=== PATIENT | male | born 1960 | race Caucasian/White ===

== ENCOUNTER 2018-04-05 19:06 | Inpatient (IN) | payer MEDICAID ==
[~2018-04-05] VITALS: Ht 188 cm; Wt 79.4 kg
--- NOTE | 2018-04-05 19:08 | NUR ---
PT BIBRA FROM HOME TO ER BED 12. C/O BILAT FOOT PAIN. HX OF GOUT. PER REPORT, PT HAD A SYNCOPAL EPISODE ON THE WAY TO [facility]. UNABLE TO RECALL WHAT HAPPEN. NO OVIOUS TRAUMA NOTED. AWAITING MD AGUILAR.
--- NOTE | 2018-04-05 19:12 | NUR ---
DR ARTEAGA AT BEDSIDE FOR EVAL.
--- NOTE | 2018-04-05 19:20 | NUR ---
TAILINGS DAM LABORER AT BEDSIDE FOR BLOOD DRAW.
--- NOTE | 2018-04-05 19:30 | NUR ---
RADIOLOGY AT BEDSIDE FOR L ANKLE XRAY.
[2018-04-05 19:49] LABS: CALCIUM, SERUM 9.4 mg/dL (8.5-10.1); CARBON DIOXIDE 22 mmol/L (21-32); CHLORIDE 102 mmol/L (98-107); CREATININE 1.9 mg/dL (0.6-1.3); GLUCOSE 135 mg/dL (74-106); SODIUM SERUM 137 mmol/L (136-145); UREA NITROGEN, BLOOD 26 mg/dL (7-18)
[2018-04-05 19:51] LABS: INR 1.11 (0.85-1.15)
[2018-04-05 19:55] LABS: TROPONIN I < 0.017 ng/mL (0.00-0.056)
[2018-04-05 20:07] LABS: POTASSIUM 2.8 mmol/L (3.5-5.1)
[2018-04-05] MEDS ORDERED: POTASSIUM CHLORIDE 10 MEQ/50 ML PREMIXED IVPB FOR PERIPHERAL LINE IV ONE (22:00)
--- NOTE | 2018-04-05 22:00 | NUR ---
CALLED [employer] NETWORKING ADMINISTRATOR WAS PAGED.
[2018-04-05] MEDS ORDERED: POTASSIUM CL. PREMIX PERIPHER. 200 ML ONE (22:03)
[2018-04-05 22:25] VITALS: BP 140/71
--- NOTE | 2018-04-05 22:25 | NUR ---
PT ADMITTED TO TELE WITH DIAGNOSES OF HYPOKALEMIA . PT VERBALLY RESPONSIVE, A/O X4 .PT WITH NO DISTRESS AND STABLE VS. IV ASSESS ON LAC G 18. 1 POTASSIUM IV BAG WAS GIVEN IN ER. 3 MORE BAGS WILL BE GIVEN ON FLOOR. WILL CONTINUE TO MONITOR
--- NOTE | 2018-04-05 22:27 | NUR ---
REPORT GIVEN TO KEN SANTOS. PT AWAITING TRANSFER TO FLOOR.
--- NOTE | 2018-04-05 22:30 | NUR ---
PT TO RADIOLOGY FOR HEAD CT SCAN VIA [facility].
[2018-04-05 22:50] VITALS: BP 140/71
--- NOTE | 2018-04-05 23:03 | NUR ---
TRANSFERED TO FLOOR IN STABLE CONDITION.
[2018-04-06] MEDS: METOPROLOL TARTRATE 25 MG TABLET PO SCH ×3 (00:30→20:54)
[2018-04-06] MEDS ORDERED: HYDROCODONE/APAP 5/325MG 1 EACH TABLET PO PRN (00:30)
[2018-04-06] MEDS ORDERED: ACETAMINOPHEN 325 MG TABLET PO PRN (00:30)
[2018-04-06] MEDS ORDERED: TEMAZEPAM 7.5 MG CAPSULE PO PRN (00:30)
[2018-04-06] MEDS ORDERED: ONDANSETRON HCL/PF 4 MG/2 ML VIAL IVP PRN (00:30)
[2018-04-06 01:18] LABS: HEMATOCRIT 36 % (39-51); HEMOGLOBIN 12.1 g/dL (13.5-17.5); MEAN CORPUSCULAR HEMOGLOBIN 28 PG (26.0-33.0); MEAN CORPUSCULAR VOLUME 83 fL (80-96); RED BLOOD CELL COUNT(AUTO) 4.32 MIL/uL (4.5-6.0); WHITE BLOOD COUNT (AUTO) 17.4 K/uL (4.3-11.0)
[2018-04-06 01:19] LABS: BASOPHILS # (AUTO) 0.1 /CMM (0.0-0.2); BASOPHILS % (AUTO) 0.5 % (0.0-2.0); EOSINOPHILS % (AUTO) 0.1 % (0.0-6.0); LYMPHOCYTES # (AUTO) 0.8 /CMM (0.8-4.8); LYMPHOCYTES % (AUTO) 4.5 % (20.0-44.0); MEAN CORPUSCULAR HGB CONC 34 g/dl (31.0-36.0); MONOCYTES # (AUTO) 1.4 /CMM (0.1-1.30); MONOCYTES % (AUTO) 7.8 % (2.0-12.0); NEUTROPHILS # (AUTO) 15.2 /CMM (1.8-8.9); NEUTROPHILS % (AUTO) 87.1 % (43.0-81.0); PLATELET COUNT (AUTO) 262 /CMM (150-450); RDW COEFFICIENT OF VARIATION 14.4 (11.5-15.0)
[2018-04-06] MEDS ORDERED: VANCOMYCIN 1 GM in IV D5W 250 ML IV ONE (02:00)
[2018-04-06] MEDS ORDERED: VANCOMYCIN 1 GM VIAL ONE (02:13)
--- NOTE | 2018-04-06 04:40 | NUR ---
CALLED TO LYUBOV BONNER TO INFORM HIM THAT PT'S MAGNESIUM IS LOW 1.7. MED ORDER WAS GIVEN BY MD MCARTHUR , MAGNESIUM OXIDE 400 PO ONCE
[2018-04-06 05:00] VITALS: BP 156/82
[2018-04-06] MEDS ORDERED: MAGNESIUM OXIDE 400 MG TABLET PO ONE (05:00)
[2018-04-06] MEDS ORDERED: PIPERACILLIN /TAZOBACTAM 2.25 G VIAL IV ONE (05:23)
[2018-04-06] MEDS ORDERED: PIPERACILLIN /TAZOBACTAM 2.25 G in IV D5W 50 ML IV SCH (06:00)
--- NOTE | 2018-04-06 07:00 | NUR ---
NURSE INTERN CLOSING NOTES PT IN BED , A/O X4 , VS ARE STABLE , NO S/S RESPIRATORY DISTRESS , NO COMPLAIN OF PAIN AT THIS TIME. IV SIDE ON LAC G 18 INTACT AND PATENT. PT NEEDS ATTENDED. BED IN LOW AND LOCKED POSITION , WITH SIDE RAILS UP X2. CALL LIGHT WITHIN REACH. WILL ENDORSE TO DAY SHIFT FOR ROSAURA.
[2018-04-06 08:00] VITALS: BP 159/79
[2018-04-06] MEDS: predniSONE 20 MG TABLET PO SCH (08:16)
[2018-04-06] MEDS: PANTOPRAZOLE 40 MG TABLET.DR PO SCH (08:16)
[2018-04-06] MEDS: DOCUSATE SODIUM 100 MG CAPSULE PO SCH ×2 (08:16→18:12)
[2018-04-06] MEDS: ASPIRIN EC 325 MG TABLET.DR PO SCH (08:17)
--- NOTE | 2018-04-06 08:17 | NUR ---
CLINICAL SUPPORT TECH NOTES PATIENT IN BED, AWAKE. SINUS RHYTHM HR 86, BREATHING ON ROOM AIR WITH NO SOB. BREAKFAST SERVED WITH GOOD APPETITE. BROOKE FEET SWELLING NOTED, PAIN 2/10 REPORTED. CALL LIGHT WITHIN REACH, WILL CONT TO MONITOR.
[2018-04-06 08:37] LABS: ALANINE AMINOTRANSFERASE 14 U/L (12-78); ALKALINE PHOSPHATASE 71 U/L (46-116); ASPARTATE AMINOTRANSFERASE 11 U/L (15-37); BILIRUBIN,TOTAL 1.7 mg/dL (0.2-1.0); CALCIUM, SERUM 8.5 mg/dL (8.5-10.1); CARBON DIOXIDE 22 mmol/L (21-32); CHLORIDE 104 mmol/L (98-107); CREATININE 1.7 mg/dL (0.6-1.3); GLUCOSE 135 mg/dL (74-106); MAGNESIUM 1.8 mg/dL (1.8-2.4); PHOSPHORUS 2.3 mg/dL (2.5-4.9); POTASSIUM 3.1 mmol/L (3.5-5.1); SODIUM SERUM 137 mmol/L (136-145); TOTAL PROTEIN, SERUM 6.8 g/dL (6.4-8.2); UREA NITROGEN, BLOOD 22 mg/dL (7-18)
[2018-04-06 08:41] LABS: TROPONIN I < 0.017 ng/mL (0.00-0.056)
[2018-04-06 08:45] LABS: BASOPHILS % (AUTO) 0.4 % (0.0-2.0); EOSINOPHILS % (AUTO) 0.2 % (0.0-6.0); HEMATOCRIT 31 % (39-51); HEMOGLOBIN 11.3 g/dL (13.5-17.5); MEAN CORPUSCULAR HEMOGLOBIN 29 PG (26.0-33.0); MEAN CORPUSCULAR HGB CONC 36 g/dl (31.0-36.0); MEAN CORPUSCULAR VOLUME 81 fL (80-96); MONOCYTES % (AUTO) 10.8 % (2.0-12.0); NEUTROPHILS % (AUTO) 80.6 % (43.0-81.0); PLATELET COUNT (AUTO) 217 /CMM (150-450); RDW COEFFICIENT OF VARIATION 14.6 (11.5-15.0); WHITE BLOOD COUNT (AUTO) 10.8 K/uL (4.3-11.0)
[2018-04-06 08:48] LABS: CHOLESTEROL 123 mg/dL (<200); HDL CHOLESTEROL 40 mg/dL (40-60); LDL 78 mg/dL (0-99); THYROID STIMULATING HORMONE 0.281 uIU/mL (0.358-3.74); TRIGLYCERIDES 55 mg/dL (30-150)
[2018-04-06] MEDS ORDERED: ALLOPURINOL 100 MG TABLET PO SCH (09:00)
[2018-04-06] MEDS ORDERED: AMLO10TA2 PO (09:09)
[2018-04-06] MEDS ORDERED: LISI2.5T2 PO (09:09)
[2018-04-06] MEDS ORDERED: HYDR-4076 PO (09:09)
[2018-04-06] MEDS ORDERED: FEE PK DOSING 1 MIN EA MC ONE (09:19)
[2018-04-06] MEDS ORDERED: POTASSIUM CHLORIDE 20 MEQ POWDER PACKET PO SCH (10:00)
[2018-04-06] MEDS: NEUTRA PHOS 1 POWD.PACKET PO SCH ×2 (11:01→18:12)
[2018-04-06] MEDS: POTASSIUM CHLORIDE 20 MEQ TAB.PRT.SR PO SCH ×2 (11:02→12:35)
[2018-04-06] MEDS: PIPERACILLIN /TAZOBACTAM 3.375 G in IV D5W 50 ML IV SCH ×2 (12:34→17:46)
[2018-04-06] MEDS: VANCOMYCIN 0.75 GM in IV D5W 250 ML IV SCH (13:34)
[2018-04-06 16:00] VITALS: BP 158/86
[2018-04-06] MEDS: IV NS 0.9% 1,000 ML IV PRN (18:15)
--- NOTE | 2018-04-06 18:51 | NUR ---
MS RN CLOSING NOTES PATIENT SITTING UP IN BED, A/O X4. LEFT FOOT PAIN IS MANAGEABLE BY POSITIONING/NON MEDICATION MEASURE. PATIENT IS SEEN BY DR. VILLEDA TODAY FOR CONSULT/CARDIO, POTASSIUM AND PHOSPHORUS SUPPLEMENTED ORDERED, IVF NS INFUSING AT 125ML/HR, VOIDED WITHOUT DIFFICULTY, URINE SPECIMEN SEND TO LAB FOR UA TEST. CONTINUE ANTIBIOTIC PER MD, AFEBRILE DURING THE SHIFT. CALL LIGHT WITHIN REACH. WILL ENDORSE TO ONCOMING RN.
--- NOTE | 2018-04-06 19:40 | NUR ---
RN MS OPENING NOTES RECEIVED PATIENT IN BED, AWAKE ALERT AND ORIENTED X 4, RESPIRATIONS EVEN AND UNLABORED WITH EQUAL RISE AND FALL OF CHEST, PER PATIENT HAS DISCOMFORT TO LEFT FOOT BUT MANAGEABLE AT THIS TIME WITH SELF REPOSITIONING, IV SITE TO LEFT AC INTACT AND PATENT, NO REDNESS NO INFILTRATION PRESENT, IVF RUNNING ORDERED. ORIENTED TO STAFF AND CALL LIGHT, CALL LIGHT KEPT WITHIN REACH, URINAL AT BEDSIDE, ALL NEEDS ATTENDED AT THIS TIME, SAFETY PRECAUTIONS RENDERED, REMAINS COMFORTABLE, WILL CONTINUE TO MONITOR.
[2018-04-06 20:00] VITALS: BP 140/71
[2018-04-06 23:15] LABS: APPEARANCE,URINE TURBID (CLEAR); BILIRUBIN,URINE NEGATIVE (NEGATIVE); BLOOD, URINE NEGATIVE Ery/uL (NEGATIVE); COLOR,URINE YELLOW (YELLOW); KETONES,URINE NEGATIVE (NEGATIVE); LEUKOCYTE ESTERASE ,URINE NEGATIVE (NEGATIVE); NITRITE, URINE NEGATIVE (NEGATIVE); PROTEIN,URINE 1+ mg/dl (NEGATIVE); UGLUCOSE NEGATIVE (NEGATIVE); UROBILINOGEN,URINE 0.2 EU/dL (0.2)
[2018-04-06 23:37] LABS: BACTERIA,URINE None seen /HPF (None Seen); RBC,URINE NONE SEEN /HPF (0-2); SQUAMOUS EPITHELIAL CELL,UR Few /HPF (None Seen)
[2018-04-06 23:38] LABS: URINE AMORPHOUS URATE Moderate /HPF (None Seen)
[2018-04-07] MEDS: PIPERACILLIN /TAZOBACTAM 3.375 G in IV D5W 50 ML IV SCH ×3 (00:17→11:52)
[2018-04-07] MEDS: VANCOMYCIN 0.75 GM in IV D5W 250 ML IV SCH (01:59)
[2018-04-07] MEDS: IV NS 0.9% 1,000 ML IV PRN ×2 (04:32→19:31)
--- NOTE | 2018-04-07 07:09 | NUR ---
RN MS CLOSING NOTES PATIENT IN BED, AWAKE ALERT AND ORIENTED X 4 ABLE TO MAKE NEEDS KNOWN. DENIES ANY PAIN OR DISCOMFORT AT THIS TIME, RESPIRATIONS EQUAL AND UNLABORED, WITH EQUAL RISE AND FALL OF CHEST. IV SITE INTACT AND PATENT NO REDNESS , NO INFILTRATION PRESENT.IVF RUNNING ORDERED. SAFETY PRECAUTIONS IN PLACE, CALL ALARM ON , LOW BED, AND LOCKED, CALL LIGHT KEPT WITHIN REACH ,ALL NEEDS ATTENDED WILL CONTINUE TO MONITOR AND ENDORSE TO NEXT SHIFT.
--- NOTE | 2018-04-07 07:30 | NUR ---
PT RECEIVED RESTING COMFORTABLY IN BED WITH EYES CLOSED. NO S/S OR C/O PAIN OR DISTRESS NOTED. SIDE RAILS UP X2, CALL LIGHT LEFT WITHIN REACH. WILL CONTINUE PLAN OF CARE.
[2018-04-07 07:32] LABS: ALBUMIN 2.5 g/dL (3.4-5.0); CALCIUM, SERUM 8.2 mg/dL (8.5-10.1); CREATININE 1.6 mg/dL (0.6-1.3); MAGNESIUM 1.6 mg/dL (1.8-2.4); PHOSPHORUS 3.9 mg/dL (2.5-4.9); POTASSIUM 3.3 mmol/L (3.5-5.1); TOTAL PROTEIN, SERUM 6.2 g/dL (6.4-8.2)
[2018-04-07 07:48] LABS: HEMATOCRIT 29 % (39-51); HEMOGLOBIN 10.2 g/dL (13.5-17.5); MEAN CORPUSCULAR HEMOGLOBIN 29 PG (26.0-33.0); MEAN CORPUSCULAR HGB CONC 36 g/dl (31.0-36.0); MEAN CORPUSCULAR VOLUME 82 fL (80-96); RDW COEFFICIENT OF VARIATION 13.4 (11.5-15.0); RED BLOOD CELL COUNT(AUTO) 3.49 MIL/uL (4.5-6.0); WHITE BLOOD COUNT (AUTO) 8.4 K/uL (4.3-11.0)
[2018-04-07 07:49] LABS: BASOPHILS % (AUTO) 0.5 % (0.0-2.0); EOSINOPHILS % (AUTO) 0.7 % (0.0-6.0); MONOCYTES # (AUTO) 0.8 /CMM (0.1-1.30); MONOCYTES % (AUTO) 9.7 % (2.0-12.0); NEUTROPHILS # (AUTO) 6.5 /CMM (1.8-8.9); NEUTROPHILS % (AUTO) 77.1 % (43.0-81.0); PLATELET COUNT (AUTO) 194 /CMM (150-450)
[2018-04-07] MEDS: PANTOPRAZOLE 40 MG TABLET.DR PO SCH (08:17)
[2018-04-07] MEDS: predniSONE 20 MG TABLET PO SCH (08:17)
[2018-04-07] MEDS: DOCUSATE SODIUM 100 MG CAPSULE PO SCH ×2 (08:18→16:53)
[2018-04-07] MEDS: ASPIRIN EC 325 MG TABLET.DR PO SCH (08:18)
[2018-04-07] MEDS: METOPROLOL TARTRATE 25 MG TABLET PO SCH ×2 (08:18→21:04)
[2018-04-07 08:24] VITALS: BP 145/72
[2018-04-07] MEDS: POTASSIUM CHLORIDE 20 MEQ TAB.PRT.SR PO SCH ×3 (09:27→12:33)
[2018-04-07] MEDS: Magnesium 1GM/D5W 100ML PREMIX 100 ML IV SCH ×3 (09:27→12:33)
--- NOTE | 2018-04-07 13:05 | NUR ---
SW [facility] to family requesting a verification of admission letter. SW completed letter and gave it to the family per their request. No other social service needs are required at this time. SW is available, if needed.
[2018-04-07] MEDS: SOD FERRIC GLUC 125 MG in IV NS 0.9% 100 ML IV SCH (15:10)
[2018-04-07 16:26] VITALS: BP 158/80
--- NOTE | 2018-04-07 18:25 | NUR ---
CHANGE OF SHIFT REPORT PT RESTING COMFORTABLY IN BED. NO S/S OR C/O PAIN OR DISTRESS NOTED. SIDE RAILS UP X2, CALL LIGHT LEFT WITHIN REACH. PT KEPT CLEAN, DRY, AND COMFORTABLE. NO SIGNIFICANT CHANGES SINCE PREVIOUS SHIFT. WILL GIVE REPORT TO DORY SANTOS.
--- NOTE | 2018-04-07 19:10 | NUR ---
RN INITIAL NOTES: Received patient on bed, alert, oriented x 4. Breathing even and unlabored. No signs of distress. No complaints of discomfort as of this time. Peripheral IV infusing at 125mL/hr. Call rogers within reach. Bed in low, locked position with siderailsx2 up. Offered bedside commode but patient refused. Patient stable as endorsed by the morning shift RN.
[2018-04-07 20:00] VITALS: BP 152/82
[2018-04-07 20:02] VITALS: BP 152/82
[2018-04-08] MEDS: IV NS 0.9% 1,000 ML IV PRN ×2 (04:20→18:51)
--- NOTE | 2018-04-08 05:49 | NUR ---
MS RN CLOSING NOTES: Patient resting in bed, alert, oriented x 4. Peripheral IV of NS infusing at 125mL/hr. No complaints of pain or discomfort as of this time. Safety precautions in place. All needs attended to. All due medications given as ordered. Will endorse ROSAURA to morning shift RN.
[2018-04-08 06:38] LABS: ALBUMIN 2.6 g/dL (3.4-5.0); BILIRUBIN,TOTAL 0.6 mg/dL (0.2-1.0); CALCIUM, SERUM 8.2 mg/dL (8.5-10.1); CREATININE 1.4 mg/dL (0.6-1.3); MAGNESIUM 1.7 mg/dL (1.8-2.4); PHOSPHORUS 3.5 mg/dL (2.5-4.9); POTASSIUM 3.4 mmol/L (3.5-5.1); TOTAL PROTEIN, SERUM 6.5 g/dL (6.4-8.2)
[2018-04-08 07:07] LABS: BASOPHILS % (AUTO) 0.2 % (0.0-2.0); EOSINOPHILS % (AUTO) 0.8 % (0.0-6.0); HEMATOCRIT 33 % (39-51); HEMOGLOBIN 11.4 g/dL (13.5-17.5); LYMPHOCYTES # (AUTO) 1.2 /CMM (0.8-4.8); LYMPHOCYTES % (AUTO) 11.4 % (20.0-44.0); MEAN CORPUSCULAR HEMOGLOBIN 29 PG (26.0-33.0); MEAN CORPUSCULAR HGB CONC 35 g/dl (31.0-36.0); MEAN CORPUSCULAR VOLUME 82 fL (80-96); MONOCYTES # (AUTO) 0.6 /CMM (0.1-1.30); MONOCYTES % (AUTO) 5.6 % (2.0-12.0); NEUTROPHILS # (AUTO) 8.5 /CMM (1.8-8.9); PLATELET COUNT (AUTO) 275 /CMM (150-450); RDW COEFFICIENT OF VARIATION 13.6 (11.5-15.0); RED BLOOD CELL COUNT(AUTO) 3.94 MIL/uL (4.5-6.0); WHITE BLOOD COUNT (AUTO) 10.4 K/uL (4.3-11.0)
--- NOTE | 2018-04-08 07:30 | NUR ---
RN MS NOTES PT IN BED, ASLEEP, EASY TO AROUSE, ALERT AND ORIENTED, DENIES PAIN, BREATHING PATTERN NORMAL AND NOT LABORED, CALL LIGHT WITHIN REACH, IV FLUIDS INFUSING WELL, NEEDS ATTENDED.
[2018-04-08] MEDS: PANTOPRAZOLE 40 MG TABLET.DR PO SCH (08:11)
[2018-04-08] MEDS: predniSONE 20 MG TABLET PO SCH (08:11)
[2018-04-08] MEDS: ASPIRIN EC 325 MG TABLET.DR PO SCH (08:11)
[2018-04-08] MEDS: METOPROLOL TARTRATE 25 MG TABLET PO SCH ×2 (08:12→21:35)
[2018-04-08 08:22] VITALS: BP 191/83
[2018-04-08] MEDS: DOCUSATE SODIUM 100 MG CAPSULE PO SCH ×2 (09:00→17:00)
[2018-04-08] MEDS: POTASSIUM CHLORIDE 20 MEQ TAB.PRT.SR PO SCH ×3 (10:11→12:31)
[2018-04-08] MEDS: Magnesium 1GM/D5W 100ML PREMIX 100 ML IV SCH ×2 (10:11→11:34)
[2018-04-08 10:39] VITALS: BP 160/79
[2018-04-08 15:57] VITALS: BP 166/89
[2018-04-08] MEDS: SOD FERRIC GLUC 125 MG in IV NS 0.9% 100 ML IV SCH (17:10)
--- NOTE | 2018-04-08 17:39 | NUR ---
RN MS NOTES PT'S BP 166/89 HR 64, DR. ROBERTO INFORMED, SAID TO MONITOR IT, NO NEW MEDICATION ORDER GIVEN.
--- NOTE | 2018-04-08 18:30 | NUR ---
RN MS NOTES\ PT IN BED, AWAKE, ALERT AND ORIENTED, DENIES PAIN, NOT IN DISTRESS, PM MEDS GIVEN ORDERED, SEEN BY DR. ROBERTO TODAY, PLAN OF CARE DISCUSSED WITH PT, VERBALIZED UNDERSTANDING, ALL NEEDS ATTENDED.
--- NOTE | 2018-04-08 19:35 | NUR ---
MS RN OPENING NOTES RECEIVED PATIENT IN BED, AWAKE ALERT AND ORIENTED X 4, RESPIRATIONS EVEN AND UNLABORED WITH EQUAL RISE AND FALL OF CHEST, PER PATIENT HAS VERY MILD DISCOMFORT TO LEFT FOOT BUT MANAGEABLE AT THIS TIME WITH SELF REPOSITIONING, IV SITE TO LEFT AC INTACT AND PATENT, RUNNING WITH IVF ORDERED. NO REDNESS NO INFILTRATION PRESENT. USES URINAL/BRP. URINAL AT BEDSIDE, CALL LIGHT KEPT WITHIN REACH, PT WANTED TO GO HOME NOW, EXPLAINED HIM RISKS & BENEFITS & TOLD HIM TO TALK TO MD IN AM, PT AGREED TO STAY @ THIS TIME. ALL NEEDS ATTENDED AT THIS TIME, SAFETY PRECAUTIONS RENDERED, REMAINS COMFORTABLE, WILL CONTINUE TO MONITOR.
[2018-04-08 20:00] VITALS: BP 162/88
--- NOTE | 2018-04-08 21:37 | NUR ---
prn restoril given pt requested to have restoril due to sleeplessness & refused to have ivf connected @ this time, stated he is drinking enough po fluids & doesnt need ivf. will reassess for effectiveness of the restoril.
[2018-04-08 22:00] VITALS: BP 142/79
[2018-04-09 06:15] LABS: BASOPHILS % (AUTO) 0.4 % (0.0-2.0); HEMATOCRIT 30 % (39-51); HEMOGLOBIN 10.7 g/dL (13.5-17.5); LYMPHOCYTES # (AUTO) 0.9 /CMM (0.8-4.8); LYMPHOCYTES % (AUTO) 9.6 % (20.0-44.0); MEAN CORPUSCULAR HEMOGLOBIN 29 PG (26.0-33.0); MEAN CORPUSCULAR HGB CONC 35 g/dl (31.0-36.0); MEAN CORPUSCULAR VOLUME 82 fL (80-96); MONOCYTES # (AUTO) 0.7 /CMM (0.1-1.30); NEUTROPHILS # (AUTO) 8.2 /CMM (1.8-8.9); PLATELET COUNT (AUTO) 273 /CMM (150-450); RDW COEFFICIENT OF VARIATION 13.4 (11.5-15.0); RED BLOOD CELL COUNT(AUTO) 3.73 MIL/uL (4.5-6.0); WHITE BLOOD COUNT (AUTO) 9.9 K/uL (4.3-11.0)
--- NOTE | 2018-04-09 06:42 | NUR ---
MS RN CLOSING NOTES PT SLEPT WELL @ NIGHT. A & O X 4, RESPIRATIONS EVEN AND UNLABORED. NO C/O PAIN VERBALIZED @ THIS TIME. IV SITE TO LEFT AC INTACT AND PATENT, REFUSED IVF @ NIGHT, STATING THAT HE IS TAKING GOOD PO INTAKE. NO REDNESS NO INFILTRATION PRESENT TO IV SITE. USES URINAL/BRP. URINAL AT BEDSIDE, CALL LIGHT KEPT WITHIN REACH. ALL NEEDS ATTENDED AT THIS TIME, SAFETY PRECAUTIONS RENDERED, REMAINS COMFORTABLE, WILL ENDORSE TO AM RN FOR CONTINUITY OF CARE.
[2018-04-09 07:05] LABS: CALCIUM, SERUM 7.9 mg/dL (8.5-10.1); CREATININE 1.4 mg/dL (0.6-1.3); MAGNESIUM 1.5 mg/dL (1.8-2.4)
--- NOTE | 2018-04-09 07:30 | NUR ---
MS RN OPENING NOTES RECEIVED PATIENT IN STABLE CONDITION. IN NO APPARENT DISTRESS. BEDSIDE RAILS ARE UPX2. BED IS LOCKED AND LOWERED. CALL LIGHT IS WITHIN REACH. IV LINE IS INTACT AND PATENT. WILL CONTINUE TO MONITOR.
[2018-04-09 08:00] VITALS: BP 162/85
[2018-04-09] MEDS: METOPROLOL TARTRATE 25 MG TABLET PO SCH ×2 (08:04→20:17)
[2018-04-09] MEDS: ASPIRIN EC 325 MG TABLET.DR PO SCH (08:04)
[2018-04-09] MEDS: predniSONE 20 MG TABLET PO SCH (08:04)
[2018-04-09] MEDS: PANTOPRAZOLE 40 MG TABLET.DR PO SCH (08:04)
[2018-04-09] MEDS: DOCUSATE SODIUM 100 MG CAPSULE PO SCH ×2 (08:05→16:25)
[2018-04-09] MEDS: POTASSIUM CHLORIDE 20 MEQ TAB.PRT.SR PO SCH ×5 (09:10→12:58)
[2018-04-09] MEDS: Magnesium 1GM/D5W 100ML PREMIX 100 ML IV SCH ×4 (09:10→14:08)
--- NOTE | 2018-04-09 14:12 | NUR ---
PATIENT REFUSES TO HAVE SPONGE BATH OR HAVE HIS LINEN CHANGED. WILL ASK PATIENT AGAIN BEFORE CHANGE OF SHIFT.
[2018-04-09] MEDS: SOD FERRIC GLUC 125 MG in IV NS 0.9% 100 ML IV SCH (15:12)
[2018-04-09 16:00] VITALS: BP 160/89
--- NOTE | 2018-04-09 18:56 | NUR ---
MS RN CLOSING NOTES PATIENT IS RESTING IN STABLE CONDITION. IN NO APPARENT DISTRESS. BEDSIDE RAILS ARE UPX2. BED IS LOCKED AND LOWERED. CALL LIGHT IS WITHIN REACH. NEW IV STARTED AT 17:20. IV LINE IS INTACT AND PATENT. ALL NEEDS WERE MET. WILL ENDORSE CARE TO CHIEF KNOWLEDGE OFFICER NURSE FOR ROSAURA.
--- NOTE | 2018-04-09 19:30 | NUR ---
RN NOTES RECEIVED PT AWAKE ON BED, A/OX3, IVFLUID NS RUNNING @ 125ML/HR, DENIES PAIN, NO SOB, CALL LIGHT WITHIN REACH, SIDERAILSUPX2, CONTINUE TO MONITOR
[2018-04-09] MEDS: IV NS 0.9% 1,000 ML IV PRN (19:50)
[2018-04-09 20:00] VITALS: BP 169/99
[2018-04-10 03:42] VITALS: BP 169/99
[2018-04-10 06:20] LABS: BASOPHILS % (AUTO) 0.5 % (0.0-2.0); EOSINOPHILS % (AUTO) 2.6 % (0.0-6.0); HEMATOCRIT 29 % (39-51); LYMPHOCYTES # (AUTO) 1.2 /CMM (0.8-4.8); LYMPHOCYTES % (AUTO) 15.4 % (20.0-44.0); MEAN CORPUSCULAR HEMOGLOBIN 29 PG (26.0-33.0); MEAN CORPUSCULAR HGB CONC 34 g/dl (31.0-36.0); MEAN CORPUSCULAR VOLUME 84 fL (80-96); MONOCYTES # (AUTO) 0.7 /CMM (0.1-1.30); MONOCYTES % (AUTO) 8.4 % (2.0-12.0); NEUTROPHILS # (AUTO) 5.9 /CMM (1.8-8.9); NEUTROPHILS % (AUTO) 73.1 % (43.0-81.0); PLATELET COUNT (AUTO) 288 /CMM (150-450); RDW COEFFICIENT OF VARIATION 14.1 (11.5-15.0); RED BLOOD CELL COUNT(AUTO) 3.47 MIL/uL (4.5-6.0); WHITE BLOOD COUNT (AUTO) 8.1 K/uL (4.3-11.0)
[2018-04-10 06:44] LABS: CALCIUM, SERUM 8.2 mg/dL (8.5-10.1); CREATININE 1.2 mg/dL (0.6-1.3); POTASSIUM 3.4 mmol/L (3.5-5.1)
--- NOTE | 2018-04-10 06:45 | NUR ---
RN NOTES AWAKE, DENIES PAIN, NO SOB, MORNING CARE RENDERED, PT. NEEDS ATTENDED
--- NOTE | 2018-04-10 07:30 | NUR ---
MS RN OPENING NOTES RECEIVED PATIENT IN STABLE CONDITION. IN NO APPARENT DISTRESS. BEDSIDE RAILS ARE UPX2. BED IS LOCKED AND LOWERED. IV LINE IS INTACT AND PATENT. CALL LIGHT IS WITHIN REACH. WILL CONTINUE TO MONITOR.
[2018-04-10 08:05] VITALS: BP 167/93
[2018-04-10] MEDS: ASPIRIN EC 325 MG TABLET.DR PO SCH (08:05)
[2018-04-10] MEDS: PANTOPRAZOLE 40 MG TABLET.DR PO SCH (08:05)
[2018-04-10] MEDS: predniSONE 20 MG TABLET PO SCH (08:06)
[2018-04-10] MEDS: METOPROLOL TARTRATE 25 MG TABLET PO SCH ×2 (08:06→20:35)
[2018-04-10] MEDS: DOCUSATE SODIUM 100 MG CAPSULE PO SCH ×2 (08:07→17:00)
[2018-04-10] MEDS ORDERED: POTASSIUM CHLORIDE 20 MEQ TAB.PRT.SR PO SCH (09:30)
--- NOTE | 2018-04-10 09:30 | NUR ---
KDUR 20MEQ NOT ADMINISTERED. WILL CONFIRM DOSE WITH PHARMACY AND RESUBMIT ORDER.
[2018-04-10] MEDS ORDERED: POTASSIUM CHLORIDE 20 MEQ TAB.PRT.SR PO ONE (13:00)
[2018-04-10] MEDS: SOD FERRIC GLUC 125 MG in IV NS 0.9% 100 ML IV SCH (14:28)
--- NOTE | 2018-04-10 14:29 | NUR ---
PER PHARMACY, OK TO SCAN FERRLLECIT MANUALLY SINCE BARCODE IS NOT SCANNING WITH SCANNER.
[2018-04-10] MEDS ORDERED: ALLO100T PO (14:56)
[2018-04-10 16:22] VITALS: BP 170/84
[2018-04-10] MEDS ORDERED: hydrALAZINE HCL 25 MG TABLET PO SCH (17:00)
[2018-04-10] MEDS: Magnesium 1GM/D5W 100ML PREMIX 100 ML IV SCH ×2 (17:58→19:03)
--- NOTE | 2018-04-10 18:20 | NUR ---
MS RN CLOSING NOTES PATIENT IS IN STABLE CONDITION. IN NO APPARENT DISTRESS. BEDSIDE RAILS ARE UPX2. BED IS LOCKED AND LOWERED. CALL LIGHT IS WITHIN REACH. IV LINE IS INTACT AND PATENT. ALL NEEDS WERE MET. WILL ENDORSE CARE TO DIGITAL SALES MANAGER NURSE FOR ROSAURA.
--- NOTE | 2018-04-10 18:51 | NUR ---
CONTACTED DR. ROBERTO. PATIENTS BLOOD PRESSURE IS 167/83 AND HEART RATE IS 57. PER DR. ROBERTO, OK TO DISCHARGE PATIENT HOME WITH HOME HEALTH. NO NEW ORDERS. PER DR ROBERTO, PATIENT IS NONCOMPLIANT WITH BP MEDICATIONS.
[2018-04-10 20:07] VITALS: BP 176/99
[2018-04-10 20:35] VITALS: BP 176/99
[2018-04-11] MEDS ORDERED: LISINOPRIL (5MG) 5 MG TABLET PO SCH (09:00)
[2018-04-11] MEDS ORDERED: AMLODIPINE BESYLATE 10 MG TABLET PO SCH (09:00)
== END 2018-04-10 21:05 | disposition home health service (06) | DRG 48 ==
LOC: ER 19:07 → TELE 22:11 → MED 04-06 10:23 → MEDSG2 04-08 20:05
PROVIDERS: ADMIT Internal Medicine; ATTEND Internal Medicine
DX: G90.8 Other disorders of autonomic nervous system (principal); N17.0 Acute kidney failure with tubular necrosis; D68.59 Other primary thrombophilia; E87.2 Acidosis; E83.42 Hypomagnesemia; E86.0 Dehydration; M10.9 Gout, unspecified; I12.9 Hypertensive chronic kidney disease with stage 1 through stage 4 chronic kidney disease, or unspecified chronic kidney disease; N18.9 Chronic kidney disease, unspecified; Z86.73 Personal history of transient ischemic attack (TIA), and cerebral infarction without residual deficits; Z85.828 Personal history of other malignant neoplasm of skin; E87.6 Hypokalemia; D50.9 Iron deficiency anemia, unspecified; Z74.09 Other reduced mobility; E05.90 Thyrotoxicosis, unspecified without thyrotoxic crisis or storm; M19.90 Unspecified osteoarthritis, unspecified site; N13.9 Obstructive and reflux uropathy, unspecified; M77.30 Calcaneal spur, unspecified foot; J98.11 Atelectasis; D72.829 Elevated white blood cell count, unspecified
CPT/HCPCS: 36415; 70450-TC; 71045-TC; 73610-TC; 73700-TC; 80048-TC; 80053-TC; 80061-TC; 80202-TC; 81000-TC; 82306; 82728-TC; 83540-TC; 83735-TC; 84100-TC; 84439-TC; 84443-TC; 84484-TC; 84550-TC; 85025-TC; 85730-TC; 87081-TC; 87086-TC; 93307-TC; 93880-TC; 97116-TC; 97530-TC; A4606; J2543; J2916; J3370; J3475; J3480; J3490; J7030; J7040; J7060; Z7610

== ENCOUNTER 2018-09-28 20:30 | Inpatient (IN) | payer MEDICAID ==
[~2018-09-28] VITALS: Ht 188 cm; Wt 83.0 kg
[~2018-09-28 20:30] MED LIST: ALLO100T PO; AMLO10TA7 PO; HYDR-4076 PO; LISI2.5T2 PO
--- NOTE | 2018-09-28 20:43 | NUR ---
BIBRA FROM HOME; C/O FEVER, CHILLS, AND PAIN ON L WRIST, R SHOULDER, R KNEE. PT AAOX4, RESPIRATIONS EVEN AND UNLABORED, NO SOB, NAD NOTED, TO ED BED 6, PENDING ER PROVIDER JEFF
[2018-09-28] MEDS ORDERED: ACETAMINOPHEN ES 500 MG TABLET ONE (20:48)
--- NOTE | 2018-09-28 20:50 | NUR ---
NOTIFIED MD OF ABNORMAL VITALS. RECVEIVED VERBAL ORDER FOR TYLENOL 1000MG. PENDING BED AVAILBILTY; ON EMS GURNEY AT THIS TIME.
[2018-09-28] MEDS ORDERED: ACETAMINOPHEN ES 500 MG TABLET PO ONE (21:00)
[2018-09-28 21:40] LABS: BASOPHILS % (AUTO) 0.4 % (0.0-2.0); HEMATOCRIT 33 % (39-51); HEMOGLOBIN 11.2 g/dL (13.5-17.5); LYMPHOCYTES # (AUTO) 0.5 /CMM (0.8-4.8); LYMPHOCYTES % (AUTO) 4.5 % (20.0-44.0); MEAN CORPUSCULAR HGB CONC 34 g/dl (31.0-36.0); MEAN CORPUSCULAR VOLUME 82 fL (80-96); MONOCYTES % (AUTO) 8.6 % (2.0-12.0); NEUTROPHILS # (AUTO) 9.6 /CMM (1.8-8.9); NEUTROPHILS % (AUTO) 86.5 % (43.0-81.0); PLATELET COUNT (AUTO) 221 /CMM (150-450); RED BLOOD CELL COUNT(AUTO) 4.03 MIL/uL (4.5-6.0); WHITE BLOOD COUNT (AUTO) 11.1 K/uL (4.3-11.0)
[2018-09-28 21:56] LABS: CALCIUM, SERUM 8.1 mg/dL (8.5-10.1); CARBON DIOXIDE 26 mmol/L (21-32); CHLORIDE 99 mmol/L (98-107); CREATININE 1.5 mg/dL (0.6-1.3); GLUCOSE 167 mg/dL (74-106); POTASSIUM 2.9 mmol/L (3.5-5.1); SODIUM SERUM 137 mmol/L (136-145); UREA NITROGEN, BLOOD 20 mg/dL (7-18)
[2018-09-28 22:00] LABS: ALANINE AMINOTRANSFERASE 19 U/L (12-78); ALBUMIN 3.1 g/dL (3.4-5.0); ALKALINE PHOSPHATASE 85 U/L (46-116); ASPARTATE AMINOTRANSFERASE 18 U/L (15-37); BILIRUBIN,DIRECT 0.4 mg/dL (0.0-0.2); BILIRUBIN,TOTAL 2.5 mg/dL (0.2-1.0); TOTAL PROTEIN, SERUM 7.1 g/dL (6.4-8.2)
[2018-09-28] MEDS ORDERED: IBUPROFEN 400 MG TABLET ONE (22:26)
[2018-09-28] MEDS ORDERED: VANCOMYCIN 1 GM in IV D5W 250 ML IV ONE (22:30)
[2018-09-28] MEDS ORDERED: IBUPROFEN 400 MG TABLET PO ONE (22:30)
[2018-09-28] MEDS ORDERED: VANCOMYCIN 1 GM VIAL ONE (22:34)
[2018-09-28 22:49] LABS: APPEARANCE,URINE SL CLOUDY (CLEAR); BILIRUBIN,URINE NEGATIVE (NEGATIVE); BLOOD, URINE TRACE-INTA Ery/uL (NEGATIVE); COLOR,URINE YELLOW (YELLOW); KETONES,URINE NEGATIVE (NEGATIVE); LEUKOCYTE ESTERASE ,URINE 1+ (NEGATIVE); NITRITE, URINE POSITIVE (NEGATIVE); PROTEIN,URINE 1+ mg/dl (NEGATIVE); UGLUCOSE NEGATIVE (NEGATIVE)
[2018-09-28 22:54] LABS: BACTERIA,URINE Many /HPF (None Seen); SQUAMOUS EPITHELIAL CELL,UR Rare /HPF (None Seen); WBC,URINE TOO NUMEROUS TO COUN /HPF (0-3)
[2018-09-28] MEDS ORDERED: POTASSIUM CHLORIDE 20 MEQ TAB.PRT.SR PO ONE ×3 (23:00→23:25)
--- NOTE | 2018-09-28 23:27 | NUR ---
REPORT GIVEN TO DANIELLE RED FOR ROSAURA REGARDING ADMISSION TO ROOM 308
--- NOTE | 2018-09-28 23:28 | NUR ---
pt is assigned to med/surg #: [id number], DX: cellulitis of the left hand, and accepting md: Dr Mendenhall
[2018-09-28] MEDS ORDERED: POTA20TA83 PO (23:35)
--- NOTE | 2018-09-29 00:06 | NUR ---
REPORT GIVEN TO PATRIC SANTOS FOR ROSAURA
--- NOTE | 2018-09-29 00:25 | NUR ---
RESTING QUIETLY, NAD NOTED. ALL NEEDS ATTENDED TO.
[2018-09-29 01:00] VITALS: BP 140/79
--- NOTE | 2018-09-29 01:00 | NUR ---
MS RN NOTE RECEIVED PT IN STABLE CONDITION VIA GUREDIN FROM ER. PT. IS A&O X4 JAPANESE SPEAKING. BODY CHECK DONE WITH PHOTOS IN CHART. ALL BELONGINGS ACCOUNTED AND SIGNED FOR. NO SIGNS OF SOB OR DISTRESS. NO C/O PAIN, N/V. SAFETY MEASURES IN PLACE: BED LOW AND LOCKED POSITION, UPPER BED RAILS UP X2, AND CALL LIGHT WITHIN REACH. ALL CURRENT NEEDS MET AND ATTENDED TO. WILL CONT. TO MONITOR.
[2018-09-29] MEDS ORDERED: ACETAMINOPHEN 325 MG TABLET PO PRN (02:30)
[2018-09-29] MEDS ORDERED: ONDANSETRON HCL/PF 4 MG/2 ML VIAL IVP PRN (02:30)
[2018-09-29] MEDS ORDERED: HYDROCODONE/APAP 5/325MG 1 EACH TABLET PO PRN (02:30)
[2018-09-29] MEDS ORDERED: ZOLPIDEM TARTRATE 5 MG TABLET PO PRN (02:30)
--- NOTE | 2018-09-29 06:16 | NUR ---
MS RN NOTE PT IN STABLE CONDITION A&O X4 UGANDAN SPEAKING. CURRENTLY RESTING IN BED. NO SIGNS OF SOB OR DISTRESS. NO C/O PAIN, N/V. SAFETY MEASURES IN PLACE: BED LOW AND LOCKED POSITION, UPPER BED RAILS UP X2, AND CALL LIGHT WITHIN REACH. ALL CURRENT NEEDS MET AND ATTENDED TO. WILL CONT. TO MONITOR AND ENDORSE TO NEXT SHIFT FOR ROSAURA.
[2018-09-29 06:35] LABS: BASOPHILS % (AUTO) 0.5 % (0.0-2.0); EOSINOPHILS % (AUTO) 0.4 % (0.0-6.0); HEMATOCRIT 29 % (39-51); LYMPHOCYTES # (AUTO) 0.8 /CMM (0.8-4.8); LYMPHOCYTES % (AUTO) 10.9 % (20.0-44.0); MEAN CORPUSCULAR HGB CONC 34 g/dl (31.0-36.0); MEAN CORPUSCULAR VOLUME 82 fL (80-96); MONOCYTES % (AUTO) 12.7 % (2.0-12.0); NEUTROPHILS # (AUTO) 5.8 /CMM (1.8-8.9); NEUTROPHILS % (AUTO) 75.5 % (43.0-81.0); PLATELET COUNT (AUTO) 162 /CMM (150-450); RED BLOOD CELL COUNT(AUTO) 3.53 MIL/uL (4.5-6.0); WHITE BLOOD COUNT (AUTO) 7.7 K/uL (4.3-11.0)
--- NOTE | 2018-09-29 07:25 | NUR ---
MS RN OPENING NOTES RECEIVED PT RESTING COMFORTABLY IN BED WITH HOB ELEVATED. PT IS A/O X3-4. RESPIRATIONS ARE EVEN AND UNLABORED, NOT IN ANY ACUTE DISTRESS NOTED. PT DENIES ANY PAIN AT THIS TIME. NO C/O SOB, N/V NOTED. IV SITE TO LAC AND RFA INTACT, NO INFILTRATION NOTED. DRESSING KEPT CLEAN AND DRY. SAFETY MEASURES ARE IN PLACE. INSTRUCTED PT TO USE CALL LIGHT WHEN ASSISTANCE IS NEEDED, CALL LIGHT IS LEFT WITHIN REACH. WILL CONTINUE TO MONITOR PT THROUGHOUT SHIFT FOR CONTINUITY OF CARE.
[2018-09-29 07:37] LABS: ALBUMIN 2.8 g/dL (3.4-5.0); BILIRUBIN,TOTAL 2.3 mg/dL (0.2-1.0); CALCIUM, SERUM 8.1 mg/dL (8.5-10.1); CREATININE 1.7 mg/dL (0.6-1.3); MAGNESIUM 1.8 mg/dL (1.8-2.4); POTASSIUM 3.1 mmol/L (3.5-5.1); TOTAL PROTEIN, SERUM 6.4 g/dL (6.4-8.2)
[2018-09-29 07:58] LABS: FREE PSA 0.06 ng/mL (0.00-45); PROSTATE SPECIFIC ANTIGEN SCR 0.36 ng/mL (0.00-4.00); THYROID STIMULATING HORMONE 0.858 uIU/mL (0.358-3.74)
[2018-09-29 08:00] VITALS: BP 133/70
[2018-09-29] MEDS: POTASSIUM CHLORIDE 20 MEQ TAB.PRT.SR PO SCH (08:30)
[2018-09-29] MEDS: PANTOPRAZOLE 40 MG TABLET.DR PO SCH (08:30)
[2018-09-29] MEDS: AMLODIPINE BESYLATE 10 MG TABLET PO SCH (08:31)
[2018-09-29] MEDS: hydrALAZINE HCL 25 MG TABLET PO SCH ×2 (08:31→16:41)
[2018-09-29] MEDS: DOCUSATE SODIUM 100 MG CAPSULE PO SCH ×2 (08:31→16:41)
--- NOTE | 2018-09-29 08:35 | NUR ---
MS RN NOTES-- PT REFUSED COLACE. LAST BM WAS 2 DAYS AGO. EXPLAINED THE IMPORTANCE OF COLACE, STILL NOTED WITH REFUSAL. WILL CONTINUE TO MONITOR.
[2018-09-29] MEDS ORDERED: FEE PK DOSING 1 MIN EA MC ONE (08:52)
[2018-09-29] MEDS: LISINOPRIL (5MG) 5 MG TABLET PO SCH (08:56)
[2018-09-29] MEDS: IV NS 0.9% 1,000 ML IV PRN ×2 (12:27→22:10)
[2018-09-29] MEDS ORDERED: POTASSIUM CHLORIDE 20 MEQ TAB.PRT.SR PO ONE (12:30)
[2018-09-29] MEDS: CEFTRIAXONE 1 G in IV D5W 50 ML IV SCH (14:46)
--- NOTE | 2018-09-29 15:46 | NUR ---
MS RN NOTES-- PT HAS A TEMP PF 100.2. BLOOD CULTURES WERE DONE. ADMINISTERED TYLENOL 650MG. WILL CONTINUE TO MONITOR.
[2018-09-29 16:00] VITALS: BP 147/78
--- NOTE | 2018-09-29 16:30 | NUR ---
SPE[employer] UNIT OFFICER NOTES-- TEMP 98.9. PT NOT IN ANY APPARENT DISTRESS. WILL CONTINUE TO MONITOR.
[2018-09-29] MEDS: VANCOMYCIN 1 GM in IV D5W 250 ML IV SCH (16:40)
--- NOTE | 2018-09-29 18:40 | NUR ---
MS RN CLOSING NOTES PT ABLE TO MAKE NEEDS KNOWN. NEEDS MET AND RENDERED. PT IS A/O X4, AFEBRILE. RESPIRATIONS ARE EVEN AND UNLABORED, NOT IN ANY ACUTE DISTRESS NOTED. PT DENIES ANY PAIN AT THIS TIME, NO C/O SOB, N/V NOTED. IV SITE TOLAC AND RFA INTACT, NO INFILTRATION NOTED. DRESSING KEPT CLEAN AND DRY. SAFETY MEASURES ARE IN PLACE. WILL ENDORSE TO NEXT SHIFT FOR CONTINUITY OF CARE.
[2018-09-29] MEDS: predniSONE 20 MG TABLET PO SCH (18:54)
--- NOTE | 2018-09-29 19:31 | NUR ---
RN MS OPENING NOTES RECEIVED PATIENT IN BED AWAKE. ALERT AND ORIENTED X4, VERBALLY RESPONSIVE, ABLE TO MAKE NEEDS KNOWN. BREATHING EVEN AND UNLABORED. NO SOB NOTED. TOLERATING ROOM AIR. IV ON LAC AND RAC INTACT AND PATENT. NO COMPLAINTS OF PAIN OR DISCOMFORT. NO FACIAL GRIMACING. SKIN DRY AND WARM TO TOUCH. AFEBRILE. ALL OTHER NEEDS ATTENDED TO. SAFETY MEASURES IN PLACE. CALL LIGHT WITHIN REACH. WILL CONTINUE TO MONITOR.
[2018-09-29 20:00] VITALS: BP 155/85
[2018-09-30 06:36] LABS: CALCIUM, SERUM 8.3 mg/dL (8.5-10.1); CREATININE 1.4 mg/dL (0.6-1.3); POTASSIUM 3.8 mmol/L (3.5-5.1)
[2018-09-30] MEDS: IV NS 0.9% 1,000 ML IV PRN (06:38)
--- NOTE | 2018-09-30 06:41 | NUR ---
RN MS CLOSING NOTES PATIENT IN BED AWAKE. NO ACUTE CHANGES THROUGHOUT SHIFT. BREATHING EVEN AND UNLABORED. NO SOB NOTED. TOLERATING ROOM AIR. IV ON LAC AND RAC INTACT AND PATENT WITH NS @125ML/HR. NO COMPLAINTS OF PAIN OR DISCOMFORT. NO FACIAL GRIMACING. SKIN DRY AND WARM TO TOUCH. AFEBRILE. ALL OTHER NEEDS ATTENDED TO. SAFETY MEASURES IN PLACE. CALL LIGHT WITHIN REACH. WILL ENDORSE TO ONCOMING NURSE FOR ROSAURA.
[2018-09-30 08:00] VITALS: BP 146/76
[2018-09-30] MEDS: PANTOPRAZOLE 40 MG TABLET.DR PO SCH (08:31)
--- NOTE | 2018-09-30 08:35 | NUR ---
MS RN NOTES Patient is awake, sitting up in bed, had breakfast with good appetite. Stable on RA, denies SOB. IVF infusing. Maintained safety, will cont to monitor.
[2018-09-30] MEDS: DOCUSATE SODIUM 100 MG CAPSULE PO SCH ×4 (08:44→16:34)
[2018-09-30] MEDS: predniSONE 20 MG TABLET PO SCH (08:44)
[2018-09-30] MEDS: AMLODIPINE BESYLATE 10 MG TABLET PO SCH (08:45)
[2018-09-30] MEDS: hydrALAZINE HCL 25 MG TABLET PO SCH ×2 (08:46→16:30)
[2018-09-30] MEDS: POTASSIUM CHLORIDE 20 MEQ TAB.PRT.SR PO SCH (08:46)
[2018-09-30] MEDS: LISINOPRIL (5MG) 5 MG TABLET PO SCH (08:46)
[2018-09-30] MEDS: VANCOMYCIN 1 GM in IV D5W 250 ML IV SCH (12:37)
[2018-09-30] MEDS: CEFTRIAXONE 1 G in IV D5W 50 ML IV SCH (14:01)
[2018-09-30 16:00] VITALS: BP 136/80
[2018-09-30 16:28] VITALS: BP 136/80
--- NOTE | 2018-09-30 19:01 | NUR ---
MR RN CLOSING NOTES Patient is awake, sitting up in bed, had dinner with good appetite. Stable on RA, denies pain. IVF infusing-maintained at 125ml/hr. Left hand cellulitis, continued on IV antibiotic as planned. Maintained safety, will endorse to oncoming RN for continuity of care.
--- NOTE | 2018-09-30 19:30 | NUR ---
MS/RN OPENING NOTES PT RECEIVED AWAKE, RESTING COMFORTABLY IN BED. A/OX3. ON ROOM AIR, BREATHING EVEN AND UNLABORED. DENIES SOB AND PAIN AT THIS TIME. IN NO ACUTE DISTRESS. IV TO LAC AND RFA PATENT AND INTACT RUNNING NS @125ML/HR. BED IN LOW/LOCKED POSITION WITH CALL LIGHT IN REACH. HOB ELEVATED. BILATERAL UPPER SIDE RAILS IN PLACE. WILL CONTINUE TO MONITOR
[2018-09-30 19:59] VITALS: BP 136/75
[2018-09-30 20:00] VITALS: BP 136/75
--- NOTE | 2018-09-30 20:34 | NUR ---
MS/RN NOTES TEAGAN AT BEDSIDE TO ASSESS PT. PLAN FOR DC TOMORROW
[2018-10-01] MEDS: IV NS 0.9% 1,000 ML IV PRN ×2 (01:09→12:13)
[2018-10-01 04:26] LABS: CALCIUM, SERUM 8.5 mg/dL (8.5-10.1); CREATININE 1.4 mg/dL (0.6-1.3); POTASSIUM 3.4 mmol/L (3.5-5.1)
--- NOTE | 2018-10-01 04:29 | NUR ---
MS/RN NOTES IV TO LFA INFILTRATED/PAINFUL. IV TO RFA LEAKING. INSERTED NEW IV TO LAC #22, GOOD BLOOD RETURN NOTED. FLUSHES WELL. IVF RESUMED.
[2018-10-01] MEDS: VANCOMYCIN 1 GM in IV D5W 250 ML IV SCH (05:39)
--- NOTE | 2018-10-01 06:48 | NUR ---
MS/RN CLOSING NOTES PT WITH EYES CLOSED. OPENS EYES SPONTANEOUSLY. A/OX3. ON ROOM AIR, BREATHING EVEN AND UNLABORED. DENIES SOB AND PAIN AT THIS TIME. IV TO LAC PATENT AND INTACT RUNNING NS @125ML/HR. NO SIGNIFICANT CHANGES OVERNIGHT. ALL NEEDS MET. KEPT PT COMFORTABLE DURING SHIFT. ALL DUE MEDS GIVEN. BED REMAINS IN LOW/LOCKED POSITION WITH CALL LIGHT IN REACH. BILATERAL UPPER SIDE RAILS IN PLACE. WILL ENDORSE TO DAY SHIFT RN ROSAURA.
[2018-10-01 08:00] VITALS: BP 135/79
--- NOTE | 2018-10-01 08:00 | NUR ---
MS/RN OPENING NOTES PT RECEIVED AWAKE, RESTING COMFORTABLY IN BED. A/OX3. ON ROOM AIR, BREATHING EVEN AND UNLABORED. DENIES SOB AND PAIN AT THIS TIME. IN NO ACUTE DISTRESS. IV h/l TO LAC PATENT AND INTACT RUNNING NS @125ML/HR. BED IN LOW/LOCKED POSITION WITH CALL LIGHT IN REACH. HOB ELEVATED. BILATERAL UPPER SIDE RAILS IN PLACE. WILL CONTINUE TO MONITOR
[2018-10-01] MEDS: DOCUSATE SODIUM 100 MG CAPSULE PO SCH ×3 (09:00→17:00)
[2018-10-01] MEDS: predniSONE 20 MG TABLET PO SCH (09:27)
[2018-10-01] MEDS: hydrALAZINE HCL 25 MG TABLET PO SCH ×2 (09:27→17:56)
[2018-10-01] MEDS: LISINOPRIL (5MG) 5 MG TABLET PO SCH (09:27)
[2018-10-01] MEDS: AMLODIPINE BESYLATE 10 MG TABLET PO SCH (09:28)
[2018-10-01] MEDS: POTASSIUM CHLORIDE 20 MEQ TAB.PRT.SR PO SCH (09:28)
[2018-10-01] MEDS: PANTOPRAZOLE 40 MG TABLET.DR PO SCH (09:36)
--- NOTE | 2018-10-01 09:43 | NUR ---
WOUND CARE CONSULT: PT PRESENTS WITH SOME INCONTINENCE. SKIN IS INTACT. DRY ABRASIONS NOTED TO LOWER LEGS, PRESENT ON ADMISSION. RECOMMENDATIONS MADE FOR SKIN PROTECTION. DISCUSSED WITH NURSING STAFF. CURRENT AMISH SCORE IS 18. WILL SEE PRN. BONNER IN AGREEMENT WITH PLAN OF CARE. Addendum: 10/01/18 at 0945 by SHEMAR BOWSER WNDNU Amended: Links added.
[2018-10-01] MEDS ORDERED: Z GUARD REMEDY 2 OZ OINT TP PRN (10:00)
[2018-10-01] MEDS ORDERED: Z GUARD REMEDY 2 OZ OINT TP SCH (10:00)
--- NOTE | 2018-10-01 11:00 | NUR ---
NOTIFIED NICOLETTE CANDELARIA OF PT'S K+3.4 WITH NO NEW ORDER AND IS TELLING THE PT TO EAT BANANAS.
[2018-10-01] MEDS: CEFTRIAXONE 1 G in IV D5W 50 ML IV SCH (12:14)
[2018-10-01 16:00] VITALS: BP 145/78
[2018-10-01 17:56] VITALS: BP 145/78
--- NOTE | 2018-10-01 19:17 | NUR ---
DISCHARGED PT HOME ACCOMPANIED BY HIS BOSS VIA PRIVATE CAR.WITH STABLE V/S.DENIES ANY PAIN OR DISTRESS.IV H/L REMOVED TO LT AC WITH NO BLEEDING NOTED.PT TOLERATED WELL.DISCHARGE INSTRUCTIONS AND PRESCRIPTIONS GIVEN TO THE PT.
== END 2018-10-01 19:20 | disposition home or self-care (01) | DRG 351 ==
LOC: ER 20:32 → MED 23:33 → MEDSG2 09-30 10:38
PROVIDERS: ADMIT Internal Medicine; ATTEND Nurse Practitioner Acute Care
DX: M10.9 Gout, unspecified (principal); N17.0 Acute kidney failure with tubular necrosis; E87.1 Hypo-osmolality and hyponatremia; C61 Malignant neoplasm of prostate; B96.1 Klebsiella pneumoniae [K. pneumoniae] as the cause of diseases classified elsewhere; D63.8 Anemia in other chronic diseases classified elsewhere; I10 Essential (primary) hypertension; Z79.899 Other long term (current) drug therapy; T39.395A Adverse effect of other nonsteroidal anti-inflammatory drugs [NSAID], initial encounter; Y92.009 Unspecified place in unspecified non-institutional (private) residence as the place of occurrence of the external cause; I25.10 Atherosclerotic heart disease of native coronary artery without angina pectoris; N39.0 Urinary tract infection, site not specified
CPT/HCPCS: 36415; 71045-TC; 80048-TC; 80053-TC; 80061-TC; 80076-TC; 80202-TC; 81000-TC; 83605-TC; 83735-TC; 84100-TC; 84153-TC; 84154-TC; 84443-TC; 84484-TC; 85025-TC; 85730-TC; 87040-TC; 87081-TC; 87086-TC; 87186-TC; 97110-TC; 97116-TC; 97530-TC; G0378; J0696; J3370; J7030; J7060

== ENCOUNTER 2018-11-06 10:29 | Inpatient (IN) | payer MEDICAID ==
[~2018-11-06] VITALS: Ht 188 cm; Wt 80.3 kg
[~2018-11-06 10:29] MED LIST changes: -ALLO100T PO; +POTA20TA83 PO
[2018-11-06] MEDS ORDERED: IV NS 0.9% 1,000 ML BAG IV ONE (11:00)
[2018-11-06 11:05] LABS: BASOPHILS # (AUTO) 0.1 /CMM (0.0-0.2); BASOPHILS % (AUTO) 0.6 % (0.0-2.0); EOSINOPHILS % (AUTO) 0.1 % (0.0-6.0); HEMATOCRIT 34 % (39-51); HEMOGLOBIN 11.3 g/dL (13.5-17.5); LYMPHOCYTES # (AUTO) 0.5 /CMM (0.8-4.8); LYMPHOCYTES % (AUTO) 3.9 % (20.0-44.0); MEAN CORPUSCULAR HGB CONC 34 g/dl (31.0-36.0); MEAN CORPUSCULAR VOLUME 82 fL (80-96); MONOCYTES # (AUTO) 1.3 /CMM (0.1-1.30); MONOCYTES % (AUTO) 10.5 % (2.0-12.0); NEUTROPHILS # (AUTO) 10.8 /CMM (1.8-8.9); NEUTROPHILS % (AUTO) 84.9 % (43.0-81.0); PLATELET COUNT (AUTO) 279 /CMM (150-450); WHITE BLOOD COUNT (AUTO) 12.7 K/uL (4.3-11.0)
[2018-11-06 11:20] LABS: CARBON DIOXIDE 27 mmol/L (21-32); CHLORIDE 101 mmol/L (98-107); CREATININE 1.7 mg/dL (0.6-1.3); GLUCOSE 165 mg/dL (74-106); POTASSIUM 3.3 mmol/L (3.5-5.1); SODIUM SERUM 138 mmol/L (136-145); UREA NITROGEN, BLOOD 40 mg/dL (7-18)
[2018-11-06] MEDS ORDERED: Magnesium 1GM/D5W 100ML PREMIX 100 ML IV ONE ×2 (11:23→12:35)
[2018-11-06 11:26] LABS: ALANINE AMINOTRANSFERASE 23 U/L (12-78); ALBUMIN 3.1 g/dL (3.4-5.0); ALKALINE PHOSPHATASE 89 U/L (46-116); ASPARTATE AMINOTRANSFERASE 31 U/L (15-37); BILIRUBIN,DIRECT 0.4 mg/dL (0.0-0.2); BILIRUBIN,TOTAL 1.9 mg/dL (0.2-1.0); TOTAL PROTEIN, SERUM 7.4 g/dL (6.4-8.2)
[2018-11-06] MEDS: Magnesium 1GM/D5W 100ML PREMIX 100 ML IV SCH ×2 (11:37→12:30)
[2018-11-06] MEDS ORDERED: POTASSIUM CHLORIDE 20 MEQ TAB.PRT.SR PO ONE ×2 (13:30→13:36)
[2018-11-06 17:27] LABS: APPEARANCE,URINE Clear (CLEAR); BILIRUBIN,URINE Negative (NEGATIVE); BLOOD, URINE Trace-lysed Ery/uL (NEGATIVE); COLOR,URINE Yellow (YELLOW); KETONES,URINE Negative (NEGATIVE); LEUKOCYTE ESTERASE ,URINE Small (NEGATIVE); NITRITE, URINE Negative (NEGATIVE); PROTEIN,URINE 30 mg/dl (NEGATIVE); UGLUCOSE Negative (NEGATIVE); UROBILINOGEN,URINE 0.2 EU/dL (0.2)
[2018-11-06 17:50] LABS: BACTERIA,URINE Many /HPF (None Seen); SQUAMOUS EPITHELIAL CELL,UR Few /HPF (None Seen)
[2018-11-06 18:32] VITALS: BP 172/91
[2018-11-06 18:35] VITALS: BP 172/91
[2018-11-06 20:00] VITALS: BP 173/86
[2018-11-06] MEDS ORDERED: Z GUARD REMEDY 2 OZ OINT TP PRN (20:30)
[2018-11-06] MEDS ORDERED: ONDANSETRON HCL/PF 4 MG/2 ML VIAL IVP PRN (20:30)
[2018-11-06] MEDS ORDERED: ZOLPIDEM TARTRATE 5 MG TABLET PO PRN (20:30)
[2018-11-06] MEDS ORDERED: MAG HYDROX/AL HYDROX/SIMETH 30 ML UDC PO PRN (20:30)
[2018-11-06] MEDS ORDERED: MAGNESIUM HYDROXIDE 30 ML UDC PO PRN (20:30)
[2018-11-06] MEDS ORDERED: COLC0.6C3 PO (20:50)
[2018-11-06] MEDS ORDERED: NAPR-1009 PO (20:50)
[2018-11-06] MEDS ORDERED: CEPH-570 PO (20:50)
[2018-11-06] MEDS ORDERED: TRAM50TA2 PO (20:50)
[2018-11-06] MEDS ORDERED: ALLO100T PO (20:50)
[2018-11-06] MEDS ORDERED: HYDR-4303 PO (20:50)
[2018-11-06] MEDS ORDERED: hydrALAZINE HCL IV 20 MG VIAL IV PRN (21:00)
[2018-11-06 21:47] VITALS: BP 173/86
[2018-11-06] MEDS: IV NS 0.9% 1,000 ML IV PRN (22:10)
[2018-11-07] MEDS: ACETAMINOPHEN 325 MG TABLET PO PRN ×2 (00:43→16:48)
[2018-11-07] MEDS ORDERED: CEFTRIAXONE 1 G VIAL ONE (02:57)
[2018-11-07] MEDS: CEFTRIAXONE 1 G in IV D5W 50 ML IV SCH (02:59)
[2018-11-07 06:25] LABS: BASOPHILS % (AUTO) 0.3 % (0.0-2.0); EOSINOPHILS % (AUTO) 0.3 % (0.0-6.0); HEMATOCRIT 29 % (39-51); HEMOGLOBIN 9.9 g/dL (13.5-17.5); LYMPHOCYTES # (AUTO) 0.8 /CMM (0.8-4.8); LYMPHOCYTES % (AUTO) 8.6 % (20.0-44.0); MEAN CORPUSCULAR HGB CONC 34 g/dl (31.0-36.0); MEAN CORPUSCULAR VOLUME 82 fL (80-96); MONOCYTES # (AUTO) 1.3 /CMM (0.1-1.30); MONOCYTES % (AUTO) 13.1 % (2.0-12.0); NEUTROPHILS # (AUTO) 7.4 /CMM (1.8-8.9); NEUTROPHILS % (AUTO) 77.7 % (43.0-81.0); PLATELET COUNT (AUTO) 248 /CMM (150-450); RED BLOOD CELL COUNT(AUTO) 3.54 MIL/uL (4.5-6.0); WHITE BLOOD COUNT (AUTO) 9.5 K/uL (4.3-11.0)
[2018-11-07 06:55] LABS: ALBUMIN 2.5 g/dL (3.4-5.0); CALCIUM, SERUM 8.2 mg/dL (8.5-10.1); CREATININE 1.4 mg/dL (0.6-1.3); MAGNESIUM 2.1 mg/dL (1.8-2.4); PHOSPHORUS 4.1 mg/dL (2.5-4.9); POTASSIUM 3.2 mmol/L (3.5-5.1); TOTAL PROTEIN, SERUM 6.2 g/dL (6.4-8.2)
[2018-11-07 08:00] VITALS: BP 154/76
[2018-11-07] MEDS ORDERED: POTASSIUM CHLORIDE 20 MEQ TAB.PRT.SR PO SCH (09:30)
[2018-11-07] MEDS: AMLODIPINE BESYLATE 10 MG TABLET PO SCH (12:44)
[2018-11-07] MEDS: hydrALAZINE HCL 25 MG TABLET PO SCH ×2 (12:44→16:48)
[2018-11-07] MEDS: TRAMADOL HCL 50 MG TABLET PO SCH ×2 (12:46→16:48)
[2018-11-07] MEDS: IV NS 0.9% 1,000 ML IV PRN (16:29)
[2018-11-07 20:00] VITALS: BP 133/68
[2018-11-07] MEDS ORDERED: CEFTRIAXONE 1 G in IV D5W 50 ML IV SCH (22:00)
[2018-11-08] MEDS: CEFTRIAXONE 1 G in IV D5W 50 ML IV SCH (03:48)
[2018-11-08 06:26] LABS: CALCIUM, SERUM 8.4 mg/dL (8.5-10.1); CREATININE 1.2 mg/dL (0.6-1.3); POTASSIUM 3.3 mmol/L (3.5-5.1)
[2018-11-08] MEDS: HYDROCODONE/APAP 5/325MG 1 EACH TABLET PO PRN (06:52)
[2018-11-08] MEDS: IV NS 0.9% 1,000 ML IV PRN ×2 (06:52→08:54)
[2018-11-08 08:00] VITALS: BP 146/77
[2018-11-08] MEDS ORDERED: POTASSIUM CHLORIDE 20 MEQ TAB.PRT.SR PO ONE (08:30)
[2018-11-08] MEDS: ALLOPURINOL 100 MG TABLET PO SCH (08:55)
[2018-11-08] MEDS: hydrALAZINE HCL 25 MG TABLET PO SCH ×2 (08:55→17:08)
[2018-11-08] MEDS: TRAMADOL HCL 50 MG TABLET PO SCH ×2 (08:56→17:09)
[2018-11-08] MEDS: AMLODIPINE BESYLATE 10 MG TABLET PO SCH (08:57)
[2018-11-08 16:00] VITALS: BP 173/83
[2018-11-08] MEDS: Potassium Chloride 40 MEQ in IV NS 0.9% 1,000 ML IV PRN (16:19)
[2018-11-08] MEDS: ACETAMINOPHEN 325 MG TABLET PO PRN (17:09)
[2018-11-08 20:00] VITALS: BP 163/75
[2018-11-09] MEDS: CEFTRIAXONE 1 G in IV D5W 50 ML IV SCH (04:16)
[2018-11-09 06:26] LABS: CALCIUM, SERUM 8.6 mg/dL (8.5-10.1); CREATININE 1.3 mg/dL (0.6-1.3); POTASSIUM 4.1 mmol/L (3.5-5.1)
[2018-11-09 08:00] VITALS: BP 182/94
[2018-11-09] MEDS: AMLODIPINE BESYLATE 10 MG TABLET PO SCH (08:28)
[2018-11-09] MEDS: TRAMADOL HCL 50 MG TABLET PO SCH ×2 (08:28→17:34)
[2018-11-09] MEDS: ALLOPURINOL 100 MG TABLET PO SCH (08:29)
[2018-11-09] MEDS: hydrALAZINE HCL 25 MG TABLET PO SCH ×3 (08:29→21:42)
[2018-11-09] MEDS: HYDROCODONE/APAP 5/325MG 1 EACH TABLET PO PRN (10:27)
[2018-11-09] MEDS: Potassium Chloride 40 MEQ in IV NS 0.9% 1,000 ML IV PRN (14:35)
[2018-11-09] MEDS: predniSONE 20 MG TABLET PO SCH (14:58)
[2018-11-09 16:00] VITALS: BP 141/77
[2018-11-09 20:07] VITALS: BP 142/80
[2018-11-10] MEDS: CEFTRIAXONE 1 G in IV D5W 50 ML IV SCH (03:54)
[2018-11-10 06:18] LABS: BASOPHILS % (AUTO) 0.2 % (0.0-2.0); HEMATOCRIT 30 % (39-51); HEMOGLOBIN 10.3 g/dL (13.5-17.5); LYMPHOCYTES # (AUTO) 0.3 /CMM (0.8-4.8); MEAN CORPUSCULAR HGB CONC 34 g/dl (31.0-36.0); MEAN CORPUSCULAR VOLUME 82 fL (80-96); MONOCYTES # (AUTO) 0.8 /CMM (0.1-1.30); MONOCYTES % (AUTO) 7.2 % (2.0-12.0); NEUTROPHILS # (AUTO) 9.5 /CMM (1.8-8.9); NEUTROPHILS % (AUTO) 89.6 % (43.0-81.0); PLATELET COUNT (AUTO) 316 /CMM (150-450); RED BLOOD CELL COUNT(AUTO) 3.66 MIL/uL (4.5-6.0); WHITE BLOOD COUNT (AUTO) 10.6 K/uL (4.3-11.0)
[2018-11-10 06:37] LABS: CALCIUM, SERUM 8.7 mg/dL (8.5-10.1); CREATININE 1.3 mg/dL (0.6-1.3); POTASSIUM 4.5 mmol/L (3.5-5.1)
[2018-11-10 08:00] VITALS: BP 140/74
[2018-11-10] MEDS: predniSONE 20 MG TABLET PO SCH (08:34)
[2018-11-10] MEDS: hydrALAZINE HCL 25 MG TABLET PO SCH ×4 (08:35→20:58)
[2018-11-10] MEDS: AMLODIPINE BESYLATE 10 MG TABLET PO SCH (08:36)
[2018-11-10] MEDS: ALLOPURINOL 100 MG TABLET PO SCH (08:36)
[2018-11-10] MEDS: TRAMADOL HCL 50 MG TABLET PO SCH ×2 (08:37→16:21)
[2018-11-10 16:00] VITALS: BP 138/72
[2018-11-10 20:00] VITALS: BP 146/76
[2018-11-11] MEDS: CEFTRIAXONE 1 G in IV D5W 50 ML IV SCH (02:44)
[2018-11-11 05:00] VITALS: BP 174/79
[2018-11-11 08:00] VITALS: BP 133/74
[2018-11-11 08:17] LABS: BASOPHILS % (AUTO) 0.2 % (0.0-2.0); EOSINOPHILS % (AUTO) 0.4 % (0.0-6.0); HEMATOCRIT 28 % (39-51); HEMOGLOBIN 9.4 g/dL (13.5-17.5); LYMPHOCYTES # (AUTO) 0.9 /CMM (0.8-4.8); LYMPHOCYTES % (AUTO) 7.4 % (20.0-44.0); MEAN CORPUSCULAR HGB CONC 34 g/dl (31.0-36.0); MEAN CORPUSCULAR VOLUME 81 fL (80-96); MONOCYTES % (AUTO) 8.6 % (2.0-12.0); NEUTROPHILS # (AUTO) 10.1 /CMM (1.8-8.9); NEUTROPHILS % (AUTO) 83.4 % (43.0-81.0); PLATELET COUNT (AUTO) 337 /CMM (150-450); WHITE BLOOD COUNT (AUTO) 12.1 K/uL (4.3-11.0)
[2018-11-11] MEDS: ALLOPURINOL 100 MG TABLET PO SCH (08:17)
[2018-11-11] MEDS: predniSONE 20 MG TABLET PO SCH (08:18)
[2018-11-11] MEDS: TRAMADOL HCL 50 MG TABLET PO SCH (08:19)
[2018-11-11] MEDS: AMLODIPINE BESYLATE 10 MG TABLET PO SCH (08:21)
[2018-11-11] MEDS: hydrALAZINE HCL 25 MG TABLET PO SCH ×2 (08:21→13:42)
[2018-11-11 08:29] LABS: ALBUMIN 2.2 g/dL (3.4-5.0); BILIRUBIN,TOTAL 0.3 mg/dL (0.2-1.0); CALCIUM, SERUM 8.6 mg/dL (8.5-10.1); CREATININE 1.2 mg/dL (0.6-1.3); PHOSPHORUS 4.2 mg/dL (2.5-4.9); POTASSIUM 3.8 mmol/L (3.5-5.1); TOTAL PROTEIN, SERUM 5.9 g/dL (6.4-8.2)
[2018-11-11] MEDS ORDERED: HYDR-4076 PO (10:35)
[2018-11-11] MEDS ORDERED: METH4TAB17 PO (10:35)
[2018-11-11] MEDS ORDERED: LEVO500T75 PO (10:35)
[2018-11-11 13:42] VITALS: BP 145/77
== END 2018-11-11 14:30 | disposition home health service (06) | DRG 351 ==
LOC: ER 10:33 → MED 17:25
PROVIDERS: ADMIT Family Medicine; ATTEND Family Medicine
DX: M10.9 Gout, unspecified (principal); N17.0 Acute kidney failure with tubular necrosis; G93.41 Metabolic encephalopathy; C61 Malignant neoplasm of prostate; D63.8 Anemia in other chronic diseases classified elsewhere; B96.1 Klebsiella pneumoniae [K. pneumoniae] as the cause of diseases classified elsewhere; N39.0 Urinary tract infection, site not specified; E87.6 Hypokalemia; I10 Essential (primary) hypertension; M25.461 Effusion, right knee; Z85.46 Personal history of malignant neoplasm of prostate; Z85.828 Personal history of other malignant neoplasm of skin; Z79.899 Other long term (current) drug therapy; M25.462 Effusion, left knee; I25.10 Atherosclerotic heart disease of native coronary artery without angina pectoris
CPT/HCPCS: 36415; 71045-TC; 73560-TC; 73564-TC; 80048-TC; 80053-TC; 80061-TC; 80076-TC; 81000-TC; 83735-TC; 84100-TC; 84443-TC; 84484-TC; 85025-TC; 85730-TC; 87081-TC; 87086-TC; 87186-TC; 93307-TC; 97110-TC; 97116-TC; 97530-TC; G0378; J0360; J0696; J3475; J3480; J7030; J7060

== ENCOUNTER 2019-03-04 02:45 | Emergency (ER) | payer MEDICAID ==
[~2019-03-04] VITALS: Ht 188 cm; Wt 81.6 kg
[~2019-03-04 02:45] MED LIST changes: +ALLO100T PO; +HYDR-4303 PO; +LEVO500T75 PO; +METH4TAB17 PO; +NAPR-1009 PO; +TRAM50TA2 PO
--- NOTE | 2019-03-04 03:10 | NUR ---
Patient C/O dizziness and lightheadedness times few days, worse today. Patient reports hx of gout and also complains of R knee pain. Pt denies syncope. Pt aaox4 no acute distress noted, resp even and unlabored. pending er md whitehead.
[2019-03-04] MEDS ORDERED: ACETAMINOPHEN ES 500 MG TABLET ONE (03:20)
[2019-03-04] MEDS ORDERED: IV NS 0.9% 1,000 ML BAG IV ONE (03:30)
[2019-03-04] MEDS ORDERED: ACETAMINOPHEN ES 500 MG TABLET PO ONE (03:30)
--- NOTE | 2019-03-04 03:30 | NUR ---
PT MEDICATED ORDERED.
[2019-03-04 03:40] LABS: CARBON DIOXIDE 24 mmol/L (21-32); CHLORIDE 104 mmol/L (98-107); CREATININE 1.9 mg/dL (0.6-1.3); GLUCOSE 122 mg/dL (74-106); POTASSIUM 3.1 mmol/L (3.5-5.1); SODIUM SERUM 140 mmol/L (136-145); UREA NITROGEN, BLOOD 23 mg/dL (7-18)
[2019-03-04 03:46] LABS: BASOPHILS # (AUTO) 0.1 /CMM (0.0-0.2); BASOPHILS % (AUTO) 0.8 % (0.0-2.0); EOSINOPHILS % (AUTO) 1.1 % (0.0-6.0); HEMATOCRIT 34 % (39-51); HEMOGLOBIN 11.5 g/dL (13.5-17.5); LYMPHOCYTES # (AUTO) 0.8 /CMM (0.8-4.8); LYMPHOCYTES % (AUTO) 11.1 % (20.0-44.0); MEAN CORPUSCULAR HGB CONC 35 g/dl (31.0-36.0); MEAN CORPUSCULAR VOLUME 81 fL (80-96); MONOCYTES # (AUTO) 0.9 /CMM (0.1-1.30); MONOCYTES % (AUTO) 13.8 % (2.0-12.0); NEUTROPHILS % (AUTO) 73.2 % (43.0-81.0); PLATELET COUNT (AUTO) 189 /CMM (150-450); RED BLOOD CELL COUNT(AUTO) 4.13 MIL/uL (4.5-6.0); WHITE BLOOD COUNT (AUTO) 6.9 K/uL (4.3-11.0)
[2019-03-04 03:55] LABS: ALANINE AMINOTRANSFERASE 14 U/L (12-78); ALBUMIN 3.4 g/dL (3.4-5.0); ALKALINE PHOSPHATASE 89 U/L (46-116); ASPARTATE AMINOTRANSFERASE 12 U/L (15-37); BILIRUBIN,DIRECT 0.2 mg/dL (0.0-0.2); BILIRUBIN,TOTAL 1.1 mg/dL (0.2-1.0); TOTAL PROTEIN, SERUM 6.6 g/dL (6.4-8.2)
[2019-03-04] MEDS ORDERED: POTASSIUM CHLORIDE 20 MEQ TAB.PRT.SR PO ONE ×2 (04:30→05:20)
[2019-03-04 04:58] LABS: APPEARANCE,URINE Clear (CLEAR); BILIRUBIN,URINE Negative (NEGATIVE); BLOOD, URINE Trace-lysed Ery/uL (NEGATIVE); COLOR,URINE Yellow (YELLOW); KETONES,URINE Negative (NEGATIVE); LEUKOCYTE ESTERASE ,URINE Negative (NEGATIVE); NITRITE, URINE Positive (NEGATIVE); PH,URINE 5.5 (5.0-8.0); PROTEIN,URINE 30 mg/dl (NEGATIVE); UGLUCOSE Negative (NEGATIVE); UROBILINOGEN,URINE 0.2 EU/dL (0.2)
--- NOTE | 2019-03-04 05:01 | NUR ---
PT ASLEEP, NO ACUTE DISTRESS NOTED, RESP EVEN AND UNLABORED. CALL LIGHT WITHIN REACH. WILL CONTINUE TO MONITOR PT CLOSELY.
[2019-03-04] MEDS ORDERED: CEFTRIAXONE 1GM BAG (ER ONLY) 50 ML IV ONE (05:19)
[2019-03-04 05:22] LABS: BACTERIA,URINE Few /HPF (None Seen); RBC,URINE 0-2 /HPF (0-2); SQUAMOUS EPITHELIAL CELL,UR Rare /HPF (None Seen)
[2019-03-04] MEDS ORDERED: CEFTRIAXONE 1 G in IV D5W 50 ML IV ONE (05:30)
--- NOTE | 2019-03-04 05:30 | NUR ---
ADDENDUM: Intravenous End Time Documentation: Rocephin 1 gram IVPB: start time:0530 am ; end time:0600 am IV site: [facility] [place] # 18 Port # 1
--- NOTE | 2019-03-04 06:04 | NUR ---
IV removed. Catheter intact and site benign. Pressure and 4x4 applied to site. No bleeding noted. Patient discharged to home in stable condition. Written and verbal after care instructions given. Patient verbalizes understanding of instruction. pt aaox4 no acute distress noted, resp even and unlabored.
[2019-03-04 06:06] VITALS: BP 145/67
== END 2019-03-04 06:06 | disposition home or self-care (01) ==
LOC: ER 02:50
DX: S80.811A Abrasion, right lower leg, initial encounter (principal); S80.812A Abrasion, left lower leg, initial encounter; N39.0 Urinary tract infection, site not specified; E87.6 Hypokalemia; N28.9 Disorder of kidney and ureter, unspecified; R42 Dizziness and giddiness; I10 Essential (primary) hypertension; I25.10 Atherosclerotic heart disease of native coronary artery without angina pectoris; Z85.46 Personal history of malignant neoplasm of prostate; Z85.828 Personal history of other malignant neoplasm of skin; X58.XXXA Exposure to other specified factors, initial encounter; Y93.89 Activity, other specified; Y92.89 Other specified places as the place of occurrence of the external cause; Y99.8 Other external cause status
CPT/HCPCS: 36415; 71045; 80048; 80076; 81001; 83605; 84484; 85025; 85730; 87040 ×2; 87077; 87086; 87186; 93005; 96361; 96365; 99284; J0696; J7030; J7060; 81000-TC

== ENCOUNTER 2019-04-18 09:06 | Emergency (ER) | payer MEDICAID ==
[~2019-04-18] VITALS: Ht 188 cm; Wt 81.2 kg
--- NOTE | 2019-04-18 09:22 | NUR ---
PT BIBSELF, PT STATES HE HAD A SYNCOPAL EPISODE THIS MORNING, C/O LEFT ARM PAIN AND HEADACHE, PT IS AAOX4, NOT IN RESPIRATORY DISTRESS, HOOKED TO MONITOR, KEPT RESTED AND COMFORTABLE, WILL CONTINUE TO MONITOR.
[2019-04-18] MEDS ORDERED: IV NS 0.9% 500 ML BAG IV ONE (09:30)
--- NOTE | 2019-04-18 09:30 | NUR ---
SEEN AND EXAMINED BY DR. VASQUEZ.
--- NOTE | 2019-04-18 09:35 | NUR ---
IV LINE ESTABLISHED, BLOOD DRAWNED AND SENT TO LAB.
[2019-04-18 09:40] LABS: BASOPHILS % (AUTO) 0.4 % (0.0-2.0); EOSINOPHILS % (AUTO) 1.2 % (0.0-6.0); HEMATOCRIT 32 % (39-51); HEMOGLOBIN 11.1 g/dL (13.5-17.5); LYMPHOCYTES # (AUTO) 0.7 /CMM (0.8-4.8); LYMPHOCYTES % (AUTO) 8.6 % (20.0-44.0); MEAN CORPUSCULAR HGB CONC 35 g/dl (31.0-36.0); MEAN CORPUSCULAR VOLUME 80 fL (80-96); MONOCYTES # (AUTO) 1.1 /CMM (0.1-1.30); MONOCYTES % (AUTO) 14.1 % (2.0-12.0); NEUTROPHILS # (AUTO) 5.9 /CMM (1.8-8.9); NEUTROPHILS % (AUTO) 75.7 % (43.0-81.0); PLATELET COUNT (AUTO) 199 /CMM (150-450); RED BLOOD CELL COUNT(AUTO) 3.94 MIL/uL (4.5-6.0); WHITE BLOOD COUNT (AUTO) 7.8 K/uL (4.3-11.0)
[2019-04-18 09:58] LABS: ALANINE AMINOTRANSFERASE 27 U/L (12-78); ALKALINE PHOSPHATASE 81 U/L (46-116); ASPARTATE AMINOTRANSFERASE 22 U/L (15-37); BILIRUBIN,DIRECT 0.2 mg/dL (0.0-0.2); CARBON DIOXIDE 25 mmol/L (21-32); CHLORIDE 103 mmol/L (98-107); CREATININE 1.9 mg/dL (0.6-1.3); GLUCOSE 190 mg/dL (74-106); SODIUM SERUM 139 mmol/L (136-145); TOTAL PROTEIN, SERUM 6.6 g/dL (6.4-8.2); UREA NITROGEN, BLOOD 20 mg/dL (7-18)
[2019-04-18 09:59] LABS: POTASSIUM 2.7 mmol/L (3.5-5.1)
[2019-04-18] MEDS ORDERED: POTASSIUM CHLORIDE 20 MEQ TAB.PRT.SR PO ONE ×2 (10:12→10:30)
--- NOTE | 2019-04-18 12:05 | NUR ---
IV removed. Catheter intact and site benign. Pressure and 4x4 applied to site. No bleeding noted. Patient discharged to home in stable condition. Written and verbal after care instructions given. Patient verbalizes understanding of instruction.
--- NOTE | 2019-04-18 12:05 | NUR ---
PT STATED THAT HE IS NOT HOMELESS AND HE LIVES IN [place] WITH A ROOMATE.
[2019-04-18 12:06] VITALS: BP 144/82
== END 2019-04-18 12:09 | disposition home or self-care (01) ==
LOC: ER 09:10
DX: R53.1 Weakness (principal); R55 Syncope and collapse; E87.6 Hypokalemia; I10 Essential (primary) hypertension; I25.10 Atherosclerotic heart disease of native coronary artery without angina pectoris; M10.9 Gout, unspecified; Z79.899 Other long term (current) drug therapy; Z85.46 Personal history of malignant neoplasm of prostate; Z85.828 Personal history of other malignant neoplasm of skin
CPT/HCPCS: 36415; 70450; 71045; 80048; 80076; 83735; 84484; 85025; 93005; 99284; J7030

== ENCOUNTER 2019-08-11 00:47 | Emergency (ER) | payer MEDICAID, OTHER ==
[~2019-08-11] VITALS: Ht 188 cm; Wt 78.9 kg
--- NOTE | 2019-08-11 00:51 | NUR ---
CALLED PT TO BE TRIAGED, NO ANSWER. NO ONE IN WAITING ROOM
--- NOTE | 2019-08-11 01:08 | NUR ---
BIBSELMichela C/O R KNEE PAIN S/P FALL. TRIPPED AND FELL ON R KNEE X3 DAYS AGO. + EDEMA
--- NOTE | 2019-08-11 01:22 | NUR ---
dr. marie at the bed side
[2019-08-11] MEDS ORDERED: INDOMETHACIN 25 MG CAPSULE PO ONE (01:30)
[2019-08-11] MEDS ORDERED: INDOMETHACIN 25 MG CAPSULE ONE (01:32)
--- NOTE | 2019-08-11 02:46 | NUR ---
dr. marie at the bed side
--- NOTE | 2019-08-11 03:06 | NUR ---
pt was provided w/ r knee immobilizer. Patient discharged to home in stable condition. Rx and Written and verbal after care instructions given. Patient verbalizes understanding of instruction. pt already has crutches and knows how to use them.
[2019-08-11 03:07] VITALS: BP 143/79
== END 2019-08-11 03:11 | disposition home or self-care (01) ==
LOC: ER 00:49
DX: S80.01XA Contusion of right knee, initial encounter (principal); M10.061 Idiopathic gout, right knee; I10 Essential (primary) hypertension; I25.10 Atherosclerotic heart disease of native coronary artery without angina pectoris; Z79.899 Other long term (current) drug therapy; Z85.46 Personal history of malignant neoplasm of prostate; Z85.828 Personal history of other malignant neoplasm of skin; W01.0XXA Fall on same level from slipping, tripping and stumbling without subsequent striking against object, initial encounter; Y93.89 Activity, other specified; Y92.89 Other specified places as the place of occurrence of the external cause; Y99.8 Other external cause status
CPT/HCPCS: 73564-TC

== ENCOUNTER 2019-08-26 22:28 | Emergency (ER) | payer OTHER ==
[~2019-08-26] VITALS: Ht 188 cm; Wt 79.4 kg
[2019-08-26] MEDS ORDERED: KETOROLAC TROMETHAMINE INJ 60 MG/2 ML VIAL IM ONE (23:08)
--- NOTE | 2019-08-26 23:10 | NUR ---
REPORT CALLED TO [facility] SPOKE TO OFFICER CHRISTOPHER (DEPUTY WATCH).
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
--- NOTE | 2019-08-26 23:17 | NUR ---
PT [facility]
[2019-08-26] MEDS: KETOROLAC TROMETHAMINE INJ 60 MG/2 ML VIAL IM ONE (23:29)
--- NOTE | 2019-08-27 01:05 | NUR ---
Patient discharged to home in stable condition. Written and verbal after care instructions given. Patient verbalizes understanding of instruction. Pt ambulatory with a steady gait
[2019-08-27 01:06] VITALS: BP 154/77
== END 2019-08-27 01:09 | disposition home or self-care (01) ==
LOC: ER 22:34
DX: S13.4XXA Sprain of ligaments of cervical spine, initial encounter (principal); I10 Essential (primary) hypertension; I25.10 Atherosclerotic heart disease of native coronary artery without angina pectoris; M10.9 Gout, unspecified; Z85.46 Personal history of malignant neoplasm of prostate; Z85.828 Personal history of other malignant neoplasm of skin; Z79.899 Other long term (current) drug therapy; Y08.89XA Assault by other specified means, initial encounter; Y93.89 Activity, other specified; Y92.89 Other specified places as the place of occurrence of the external cause; Y99.8 Other external cause status
CPT/HCPCS: 72125; 96372 ×2; 99284; J1885

== ENCOUNTER 2019-08-31 01:19 | Emergency (ER) | payer OTHER ==
[~2019-08-31] VITALS: Ht 188 cm; Wt 86.6 kg
--- NOTE | 2019-08-31 01:40 | NUR ---
BIBSELF. TO ER BED 11. AAOX4. NO RESP DISTRESS NOTED, AMBULATORY. C/O LOWER BACK AND L SHOULDER PAIN X 1 WEEK PROGRESSIVELY GETTING WORST. PT RATES PAIN 10/10 SHARP. ROM ON L SHOULDER LIMITED D/T PAIN. MD WAS AT BEDSIDE FOR EVAL. ORDERS RECEIVED TO GIVE TORADOL 60MG IM X 1 DOSE.
[2019-08-31] MEDS ORDERED: KETOROLAC TROMETHAMINE INJ 60 MG/2 ML VIAL IM ONE ×2 (01:44→02:00)
[2019-08-31] MEDS ORDERED: CLONIDINE HCL 0.1 MG TABLET PO ONE (02:30)
[2019-08-31] MEDS ORDERED: CLONIDINE HCL 0.1 MG TABLET ONE (02:34)
[2019-08-31 05:16] VITALS: BP 140/71
--- NOTE | 2019-08-31 05:16 | NUR ---
Patient discharged to home in stable condition. Written and verbal after care instructions given. Patient verbalizes understanding of instruction. Pt ambulatory with a steady gait
== END 2019-08-31 05:16 | disposition home or self-care (01) ==
LOC: ER 01:20
DX: M54.5 Low back pain (principal); G89.29 Other chronic pain; I10 Essential (primary) hypertension; I25.10 Atherosclerotic heart disease of native coronary artery without angina pectoris; Z85.46 Personal history of malignant neoplasm of prostate; Z85.828 Personal history of other malignant neoplasm of skin; Z79.899 Other long term (current) drug therapy
CPT/HCPCS: 96372; 99283; J1885

== ENCOUNTER 2019-09-23 00:35 | Emergency (ER) | payer OTHER ==
[~2019-09-23] VITALS: Ht 188 cm; Wt 90.7 kg
--- NOTE | 2019-09-23 00:48 | NUR ---
PT CAME TO ER BY SELF C/O MID BACK PAIN. PT STATES THAT HE HAS HAD THIS PAIN ABOUT 1x WEEK. AAOX4. PT STATES THAT HE DID NOT DO ANY STRENUOUS ACTIVITY PRIOR TO THIS PAIN. NOT IN ANY DISTRESS. NO SOB. BREATHING EVENLY AND UNLABORED. WILL CONTINUE TO MONITOR.
--- NOTE | 2019-09-23 01:06 | NUR ---
BLOOD COLLECTED AND SENT TO LAB FOR TESTING.
[2019-09-23 01:14] LABS: BASOPHILS # (AUTO) 0.2 /CMM (0.0-0.2); BASOPHILS % (AUTO) 2.6 % (0.0-2.0); EOSINOPHILS % (AUTO) 2.7 % (0.0-6.0); HEMATOCRIT 31 % (39-51); HEMOGLOBIN 10.1 g/dL (13.5-17.5); LYMPHOCYTES # (AUTO) 0.9 /CMM (0.8-4.8); LYMPHOCYTES % (AUTO) 13.1 % (20.0-44.0); MEAN CORPUSCULAR HGB CONC 33 g/dl (31.0-36.0); MEAN CORPUSCULAR VOLUME 81 fL (80-96); MONOCYTES # (AUTO) 0.6 /CMM (0.1-1.30); MONOCYTES % (AUTO) 9.3 % (2.0-12.0); NEUTROPHILS # (AUTO) 4.8 /CMM (1.8-8.9); NEUTROPHILS % (AUTO) 72.3 % (43.0-81.0); PLATELET COUNT (AUTO) 292 /CMM (150-450); RED BLOOD CELL COUNT(AUTO) 3.82 MIL/uL (4.5-6.0); WHITE BLOOD COUNT (AUTO) 6.7 K/uL (4.3-11.0)
--- NOTE | 2019-09-23 01:18 | NUR ---
PT UNABLE TO PROVIDE URINE AT THIS TIME. NOTIFIED. WILL TRY AT A LATER TIME
[2019-09-23 01:21] LABS: CALCIUM, SERUM 8.6 mg/dL (8.5-10.1); CREATININE 1.7 mg/dL (0.6-1.3); POTASSIUM 3.2 mmol/L (3.5-5.1)
--- NOTE | 2019-09-23 01:34 | NUR ---
PT RETURNED FROM CT
[2019-09-23] MEDS ORDERED: LORAZEPAM INJ 2 MG/ML VIAL ONE (01:38)
--- NOTE | 2019-09-23 02:05 | NUR ---
CURRENTLY UNABLE TO PROVIDE URINE
--- NOTE | 2019-09-23 02:30 | NUR ---
URINE COLLECTED AND SENT TO LAB FOR TESTING
[2019-09-23 04:03] LABS: APPEARANCE,URINE Clear (CLEAR); BILIRUBIN,URINE Negative (NEGATIVE); BLOOD, URINE Negative Ery/uL (NEGATIVE); COLOR,URINE Yellow (YELLOW); KETONES,URINE Negative (NEGATIVE); LEUKOCYTE ESTERASE ,URINE Negative (NEGATIVE); NITRITE, URINE Positive (NEGATIVE); PH,URINE 5.5 (5.0-8.0); PROTEIN,URINE Negative (NEGATIVE); UGLUCOSE Negative (NEGATIVE); UROBILINOGEN,URINE 0.2 EU/dL (0.2)
[2019-09-23 04:25] LABS: BACTERIA,URINE Moderate /HPF (None Seen); SQUAMOUS EPITHELIAL CELL,UR Rare /HPF (None Seen); WBC,URINE 51-80 /HPF (0-3)
[2019-09-23] MEDS ORDERED: KETOROLAC TROMETHAMINE INJ 30 MG/ML VIAL IV ONE (04:30)
[2019-09-23] MEDS ORDERED: KETOROLAC TROMETHAMINE 15 MG/ML VIAL ONE (04:33)
--- NOTE | 2019-09-23 04:43 | NUR ---
IV removed. Catheter intact and site benign. Pressure and 4x4 applied to site. No bleeding noted.
--- NOTE | 2019-09-23 04:44 | NUR ---
Patient discharged to home in stable condition. Written and verbal after care instructions given. Patient verbalizes understanding of instruction.
[2019-09-23 04:53] VITALS: BP 148/7
== END 2019-09-23 05:17 | disposition home or self-care (01) ==
LOC: ER 00:35
DX: M54.5 Low back pain (principal); G89.29 Other chronic pain; N12 Tubulo-interstitial nephritis, not specified as acute or chronic; I10 Essential (primary) hypertension; I25.10 Atherosclerotic heart disease of native coronary artery without angina pectoris; Z85.46 Personal history of malignant neoplasm of prostate; Z85.828 Personal history of other malignant neoplasm of skin; Z79.899 Other long term (current) drug therapy
CPT/HCPCS: 36415; 74176; 80048; 81001; 85025; 87077; 87086; 87186; 96374; 99284; J1885; 81000-TC; J2060

== ENCOUNTER 2020-06-28 23:30 | Emergency (ER) | payer OTHER ==
[~2020-06-28] VITALS: Ht 188 cm; Wt 77.1 kg
[~2020-06-28 23:30] MED LIST changes: +LEVO500T23 PO; -LEVO500T75 PO
[2020-06-28 23:36] VITALS: BP 132/81
--- NOTE | 2020-06-29 00:47 | NUR ---
unable to depart due to [facility]
== END 2020-06-29 00:47 | disposition home or self-care (01) ==
LOC: ER 23:33
DX: S93.492A Sprain of other ligament of left ankle, initial encounter (principal); I10 Essential (primary) hypertension; I25.10 Atherosclerotic heart disease of native coronary artery without angina pectoris; M10.9 Gout, unspecified; Z79.899 Other long term (current) drug therapy; X50.1XXA Overexertion from prolonged static or awkward postures, initial encounter; Y93.41 Activity, dancing; Y92.89 Other specified places as the place of occurrence of the external cause; Y99.8 Other external cause status
CPT/HCPCS: 73610-TC

== ENCOUNTER 2020-11-27 02:56 | Emergency (ER) | payer OTHER ==
[~2020-11-27] VITALS: Ht 188 cm; Wt 81.6 kg
[~2020-11-27 02:56] MED LIST changes: +AMLO-213 PO; -AMLO10TA7 PO
[2020-11-27 02:57] VITALS: BP 142/73
[2020-11-27] MEDS ORDERED: CEPH500C2 PO (04:07)
[2020-11-27] MEDS ORDERED: CEPHALEXIN MONOHYDRATE 500 MG CAPSULE PO ONE ×2 (04:28→04:30)
== END 2020-11-27 04:32 | disposition home or self-care (01) ==
LOC: ER 03:00
DX: L03.116 Cellulitis of left lower limb (principal); I10 Essential (primary) hypertension; I25.10 Atherosclerotic heart disease of native coronary artery without angina pectoris; M10.9 Gout, unspecified; Z79.899 Other long term (current) drug therapy
CPT/HCPCS: 73630-TC